=== PATIENT | female | born 1950 | race Caucasian/White ===

== ENCOUNTER → 2020-02-14 10:19 | Outpatient (CLI) | payer MEDICARE, SELFPAY ==
--- NOTE | ~2020-02-14 | MM_ITS ---
EXAMINATION: MM screening bay[facility] BI w cindy HISTORY: Screening TECHNIQUE: Craniocaudal and mediolateral oblique 3-D tomosynthesis images were obtained and synthetic 2-D images were generated. CAD analysis was submitted and interpreted. COMPARISON: Comparison to multiple prior studies sequentially, with oldest reviewed study dated 05/2013. BREAST PARENCHYMAL COMPOSITION: There are scattered areas of fibroglandular density. FINDINGS: There is no evidence of suspicious mass, calcification, or architectural distortion to sugg est malignancy in either breast. There has been no suspicious interval change. IMPRESSION: 1. No mammographic evidence of malignancy. 2. Recommend routine screening mammography in one year. BI-RADS Category 1: Negative Reviewed, dictated and finalized at location A. 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
== END ==
PROVIDERS: PCP Family Medicine Adolescent Medicine; Visit Provider Nurse Practitioner
DX: Z12.31 Encounter for screening mammogram for malignant neoplasm of breast (principal)
CPT/HCPCS: 77063; 77067

== ENCOUNTER → 2020-03-29 10:45 | Outpatient (CLI) | payer MEDICARE, SELFPAY ==
--- NOTE | ~2020-03-29 | DEXA_ITS ---
Bone Density Report Name: Sue Smallwood Age: 69 Sex: Female Ethnicity: White Date of : 1950 Indication: postmenopausal; screening for osteoporosis; height loss; Referring Provider: LIA, LAUREN Study: Bone densitometry was performed. Exam Date: March 29, 2020 Accession number: [id number] There is hypertrophic degenerative change of the lumbar spine, which results in higher than expected spine bone mineral density measurements. These spine BMD and T score and Z score measurements are not reflective of the patient's true general bone mineral density. Bone Density: Region BMD T-score Z-score Classification AP Spine (L3, L4) 1.124 0.2 2.4 Normal Femoral Neck (Left) 0.665 -1.7 0.1 Osteopenia Total Hip (Left) 0.900 -0.3 1.1 Normal Femoral Neck (Right) 0.656 -1.7 0.0 Osteopenia Total Hip (Right) 0.934 -0.1 1.4 Normal Total Hip Mean 0.917 -0.2 1.3 Normal World Health Organization criteria for BMD impression classify patients as: Normal (T-score at or above -1.0), Osteopenia (T-score between -1.0 and -2.5), or Osteoporosis (T-score at or below -2.5). 10-year Fracture Risk(1): Major Osteoporotic Fracture 9.1% Hip Fracture 1.3% Reported Risk Factors: [place] (), Neck BMD=0.656, BMI=41.6 (1) FRAX(R) Version 3.08. Fracture probability calculated for an untreated patient. Fracture probability may be lower if the patient has received treatment. Previous Exams: Region Exam Age BMD T-score BMD Change BMD Change Date g/cm2 vs Baseline vs Previous AP Spine(L3, L4) 03/29/2020 69 1.124 0.2 0.107 0.093* 01/12/2018 67 1.031 -0.6 0.015 -0.041* 12/19/2013 63 1.072 -0.3 0.056 -0.035* 01/12/2011 60 1.108 0.1 0.091 0.019 12/10/2008 58 1.088 -0.1 0.072 0.170 06/04/2006 55 0.918 -1.7 -0.099 -0.099 03/17/2002 51 1.017 -0.8 Total Hip(Left) 03/29/2020 69 0.900 -0.3 -0.133 0.067* 01/12/2018 67 0.833 -0.9 -0.200 -0.223* 12/19/2013 63 1.056 0.9 0.023 0.121* 01/12/2011 60 0.935 -0.1 -0.098 -0.115* 12/10/2008 58 1.050 0.9 0.017 0.104* 06/04/2006 55 0.946 0.0 -0.088 -0.088 03/17/2002 51 1.033 0.7 Total Hip(Right) 03/29/2020 69 0.934 -0.1 -0.086 0.095* 01/12/2018 67 0.839 -0.8 -0.180 -0.172* 12/19/2013 63 1.011 0.6 -0.008 -0.018 01/12/2011 60 1.029 0.7 0.009 -0.049* 12/10
== END ==
PROVIDERS: PCP Family Medicine Adolescent Medicine; Visit Provider Nurse Practitioner
DX: M85.88 Other specified disorders of bone density and structure, other site (principal); M85.852 Other specified disorders of bone density and structure, left thigh; M85.851 Other specified disorders of bone density and structure, right thigh
CPT/HCPCS: 77080

== ENCOUNTER 2020-07-17 02:28 | Inpatient (IN) | payer MEDICARE, SELFPAY ==
[2020-07-17] VITALS (13 sets, daily range): BP systolic 111–159; BP diastolic 59–95; PULSE 51–96; RESP 14–20; TEMP 35.8–36.6; O2SAT 97–100; BMI 43.0
--- NOTE | ~2020-07-17 | XR_ITS ---
EXAMINATION: XR chest 2V DATE: 07/17/2020 02:59 INDICATION: Midsternal chest pain TECHNIQUE: PA and lateral views of the chest were obtained. COMPARISON: Chest radiograph dated 05/08/2004 FINDINGS: The lungs remain clear with no focal airspace opacities, pulmonary edema, pleural effusion or pneumot horax. The cardiomediastinal silhouette is normal. Moderate thoracolumbar levoscoliosis with mild com pensatory thoracic dextroscoliosis. IMPRESSION: 1. No acute cardiopulmonary disease. 2. Scoliosis. Reviewed, dictated and finalized at location A.
--- NOTE | 2020-07-17 02:33 | ECG_ITS ---
Measurements Intervals [place] Rate: 96 P: 32 [place]: 160 QRS: -28 QRSD: 108 T: 74 QT: 348 QTc: 441 Interpretive Statements SINUS RHYTHM LEFT VENTRICULAR HYPERTROPHY WITH ST-T CHANGE BORDERLINE R WAVE PROGRESSION, ANTERIOR LEADS MINIMAL Q WAVES- HIGH LATERAL LEADS BORDERLINE ECG Electronically Signed On 07-17-2020 6:07:11 CDT by Richard Pond D.O.
[2020-07-17 02:55] LABS: Basophils Absolute Auto 0.1 K/mm3 (0.0-0.1); Basophils Percent Auto 0.5 % (0.2-1.2); Eosinophils Absolute Auto 0.2 K/mm3 (0-0.3); Eosinophils Percent Auto 1.6 % (0-4.4); Hematocrit 37.5 % (37.0-47.0); Hemoglobin 12.3 g/dL (12.0-15.0); Immature Granulocyte Absolute 0.04 K/mm3 (0.00-0.031); Immature Granulocyte Percent A 0.3 % (0-0.5); Lymphocytes Absolute Auto 5.15 K/mm3 (0.9-3.2); Lymphocytes Percent Auto 40.3 % (18.3-44.2); Mean Corpuscular HGB Conc 32.8 g/dl (32-36); Mean Corpuscular Hemoglobin 31.4 pg (26-34); Mean Corpuscular Volume 95.7 fl (80-100); Mean Platelet Volume 10.6 fl (7.4-10.4); Monocytes Absolute Auto 0.9 K/mm3 (0.1-0.6); Neutrophils Absolute Auto 6.4 K/mm3 (1.3-6.7); Neutrophils Percent Auto 50.3 % (45.5-73.1); Platelet Count Result 272 k/mm3 (150-375); Red Blood Count 3.92 M/mm3 (4.2-5.4); Red Cell Distribution Width 13.3 % (11.5-14.5); White Blood Count 12.8 K/mm3 (4.5-10.0)
[2020-07-17 03:05] LABS: Anion Gap 11 mmol/L (8-16); Blood Urea Nitrogen 35 mg/dL (7-17); Carbon Dioxide 23 mmol/L (22-30); Chloride 105 mmol/L (98-107); Estimated CRCL calculation 50 ml/min; Estimated Glomerular Filt Rate 55; Glucose 284 mg/dL (65-105); Potassium 4.8 mmol/L (3.4-5.0); Sodium 139 mmol/L (137-145)
[2020-07-17 03:17] LABS: Troponin I < 0.012 ng/mL (0.000-0.034)
--- NOTE | 2020-07-17 03:51 | ED.CHESTPAIN ---
HPI - Chest Pain General Chief Complaint: Chest Pain Stated Complaint: chest tight/painful Time Seen by Provider: 07/17/20 02:49 Source: patient, family and RN notes reviewed Mode of arrival: ambulatory Limitations: no limitations History of Present Illness HPI narrative: Patient is 69 years old white female presented to the ED with her complaining of intermittent chest pain for the last few days, worse on exertion, better at rest. Patient also complaining of fluttering feeling off and on for the last 2 weeks. History of diabetes, hypertension, hyperlipidemia, TIA, positive family history of coronary artery disease. Patient on Coumadin for abdominal blood clot. Patient does not smoke or drink or uses drugs. Currently patient still having heaviness at the left side of her chest. Related Data Allergies Allergy/AdvReac Type Severity Reaction Status Date / Time codeine AdvReac Unknown FEEL Verified 07/17/20 02:30 LOOPY THEN GET NAUSEATED Frdylbb-Zzv-Nxt Reductase AdvReac Unknown JOINT Verified 07/17/20 02:30 Inhibitor ACHES Review of Systems Review of Systems: Narrative: CONSTITUTIONAL: Denies fever, chills, or sweats. EYES: Denies visual changes, redness, or discharge. ENT: Denies rhinorrhea, congestion, sore throat, or otalgia. CARDIOVASCULAR: Denies chest pain, palpitations, or edema. RESPIRATORY: Denies cough or dyspnea. GASTROINTESTINAL: Denies abdominal pain, nausea, vomiting, or diarrhea. GENITOURINARY: Denies dysuria or hematuria. SKIN: Denies rash or itching. MUSCULOSKELETAL: Denies back pain, joint pain, or myalgia. NEUROLOGIC: Denies headache, numbness, or weakness. PSYCHIATRIC: Denies anxiety or depression. [facility] Family History Family History (Updated 04/29/15 @ 15:28 by DOCTOR UNKNOWN) Mother Hypertension Family history of lung cancer Father Cerebrovascular accident Family history of heart disease in male family member before age 55 Other Diabetes mellitus Family history of cardiovascular disease Malignant neoplasm of prostate Social History Social History Smoking status: Never smoker Alcohol intake: current Gender identity (if verbalized by the patient): Female Sexual Orientation (if Verbalized by the Patient): Straight or Heterosexual Course Vital Signs Vital signs: Vital Signs Temperature 35.8 C L 07/17/20 02:38 Pulse Rate 92 07/17/20 02:38 Respiratory Rate 16 07/17/20 02:38 Blood Pressure 159/74 H 07/17/20 02:38 Pulse Oximetry 97 07/17/20 02:38 Temperature 35.8 C L 07/17/20 02:38 Pulse Rate 92 07/17/20 02:38 Respiratory Rate 16 07/17/20 02:38 Blood Pressure 159/74 H 07/17/20 02:38 Pulse Oximetry 97 07/17/20 02:38 MDM - Chest Pain Lab Data Result diagrams: 07/17/20 02:49 07/17/20 02:49 Labs: Lab Results 07/17/20 07/17/20 Range/Units 02:49 02:49 WBC 12.8 H (4.5-10.0) K/mm3 RBC 3.92 L (4.2-5.4) M/mm3 Hgb 12.3 (12.0-15.0) g/dL Hct 37.5 (37.0-47.0) % MCV 95.7 (80-100) fl MCH 31.4 (26-34) pg MCHC 32.8 (32-36) g/dl RDW 13.3 (11.5-14.5) % Plt Count 272 (150-375) k/mm3 MPV 10.6 H (7.4-10.4) fl Immature Gran % (Auto) 0.3 (0-0.5) % Neut % (Auto) 50.3 (45.5-73.1) % Lymph % (Auto) 40.3 (18.3-44.2) % Garvin % (Auto) 7.0 (2.6-8.5) % Eos % (Auto) 1.6 (0-4.4) % Baso % (Auto) 0.5 (0.2-1.2) % Lymph # (Auto) 5.15 H (0.9-3.2) K/mm3 Garvin # (Auto) 0.9 H (0.1-0.6) K/mm3 Eos # (Auto) 0.2 (0-0.3) K/mm3 Baso # (Auto) 0.1 (0.0-0.1) K/mm3 Abs Immat Gran (auto) 0.04 H (0.00-0.031) K/mm3 Absolute Neuts (auto) 6.4 (1.3-6.7) K/mm3 Absolute Nucleated RBC 0.0 (0.0-0.012) K/mm3 Nucleated RBC % 0.0 (0.0-0.2) % Sodium 139 (137-145) mmol/L Potassium 4.8 (3.4-5.0) mmol/L Chloride 105 (98-107) mmol/L Carbon Dioxide 23 (22-30) mmol/L Anion Gap 11 (8-16) mmol/L BUN 35 H (7-17) mg/dL Crea
[2020-07-17 04:53] LABS: Partial Thromboplastin Time 31.6 SECONDS (22.3-36.8)
[2020-07-17 05:08] LABS: D Dimer < 0.22 ug/mL (<0.48)
[2020-07-17 05:28] LABS: INR 1.8; Prothrombin Time 21.8 Seconds (11.1-14.7)
[2020-07-17 06:55] LABS: Troponin I 0.045 ng/mL (0.000-0.034)
--- NOTE | 2020-07-17 06:59 | PC.NURSE ---
This patient, Sue Smallwood, was admitted to IMU Room 205-01. Patient/family oriented to hospital policies and general routines including ID bracelet, bed and alarms, visiting hours, pain management, procedures, bathroom and other care routines, personal items, smoking policy, room service/diet, and visiting hours. Information on how to activate the Rapid Response Team has been discussed. Patient/Family are encouraged to report perceived risks to care and to ask questions if they do not understand what they are told or what they should do.
[2020-07-17 09:32] LABS: Troponin I 0.073 ng/mL (0.000-0.034)
--- NOTE | 2020-07-17 09:37 | PM.CNCAR ---
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 Will plan that tomorrow as she is on Coumadin and her INR is 1.8. Will hold coumadin tonight and repeat INR in am. Also hold Metformin Continue ASA and Atorvastatin Check lipid profile and HgA1c (2) PVD (peripheral vascular disease): Code(s): I73.9 - Peripheral vascular disease, unspecified Status: Acute Assessment and Plan: With occlusion of celiac and mesenteric arteries noted on MRA in 2017 and unsuccessful attempt for revascularization at that time Okay to hold Coumadin with planned procedure/intervention tomorrow (3) Diabetes mellitus: Code(s): E11.9 - Type 2 diabetes mellitus without complications Status: Acute Assessment and Plan: Hold metformin (4) HTN (hypertension): Code(s): I10 - Essential (primary) hypertension Status: Acute Assessment and Plan: resume home meds History of Present Illness History of Present Illness Consult date/time: 07/17/20 09:37 69 y/o with h/o of DM (since her 40s), HTN, 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 last night around 12:15 she woke up with chest pain that felt like heaviness with radiation to the back. Pain resolved spontaneously by the time she got to the ER around 2:30 am. She has no nausea, diaphoresis, dizziness or syncope. She denies dyspnea. Her troponin noted to be slightly elevated at 0.04 and 0.07. Her INR is 1.8. She is pain free currently. EKG shows sinsu rhythm with LVH and repolarization changes in 2017 she had extensive GI work up for abdominal pain and eventually underwent MRA of abdomen that revealed occlusion of proximal celiac and mesenteric arteries. Attempt was made for catheter based intervention at [facility] was unsuccessful per patient with difficult access from left groin at that time per pt report Never smoker Father had PR in his early 60s Reason For Visit: chest pain Review of Systems Review of Systems: All systems reviewed & are unremarkable except as noted in HPI and below Constitutional: Constitutional: Denies fatigue and Denies headache(s) Eyes: Eyes: Denies blurry vision ENT: Reports Normal hearing present and Denies headache(s) Cardiovascular: Cardiovascular: Denies chest pain, Denies diaphoresis, Denies pedal edema, Denies leg edema, Denies lightheadedness, Denies palpitations and Denies dyspnea Respiratory: Respiratory: Denies cough and Denies dyspnea Gastrointestinal: Gastrointestinal: Denies abdominal pain Musculoskeletal: Musculoskeletal: Denies back pain Neurologic: Reports Normal hearing present and Denies headache(s) Psychiatric: Psychiatric: Denies anxiety Endocrine: Endocrine: Denies fatigue and Denies palpitations [facility] Family History Family History (Updated 04/29/15 @ 15:28 by DOCTOR UNKNOWN) Mother Hypertension Family history of lung cancer Father Cerebrovascular accident Family history of heart disease in male family member before age 55 Other Diabetes mellitus Family history of cardiovascular disease Malignant neoplasm of prostate Social History Social H
--- NOTE | 2020-07-17 09:56 | ECHO_ITS ---
Patient Info Name: Sue Smallwood Age: 69 years : 1950 Gender: Female Ht: 60 in Wt: 220 lbs BSA: 2.12 m2 HR: 97 bpm BP: 111 / 82 mmHg Technical Quality: Good Exam Date: 07/17/2020 10:32 AM Exam Location: [facility] Patient Status: Inpatient Admit Date: 07/17/2020 Staff Ordering Physician: Katherin Tierney MD (martita/hernán) [employer] Coordinator: Destiney Alexander RDCS Attending Provider: Aaron Craven MD Exam Type: CA echo doppler color flow Study Info Indications - chest pain Complete two-dimensional, color flow and Doppler transthoracic echocardiogram is performed. Summary 1. Complete two-dimensional, color flow and Doppler transthoracic echocardiogram is performed. 2. Left ventricular systolic function is normal, estimated at 60-65%. 3. Right ventricular chamber dimension is mildly enlarged. 4. Aortic valve is mildly calcified with no restricted motion. There is no aortic stenosis. 5. There is no mitral valve regurgitation. 6. There is trace tricuspid valve regurgitation. 7. Ascending aorta appears mildly calcified. 8. There is no pericardial effusion. Left Ventricle Left ventricular chamber dimension is normal. Left ventricular systolic function is normal, estimated at 60-65%. There is mildly increased left ventricular wall thickness. Left ventricular septal wall motion is normal. The left ventricular diastolic function is normal. Right Ventricle Right ventricular chamber dimension is mildly enlarged. Right ventricular systolic function is normal. Left Atria Left atrial chamber dimension is normal. Right Atria Right atrial chamber dimension is normal. Aortic Valve The aortic valve is trileaflet. There is no aortic valve sclerosis. There is no aortic valve stenosis. There is no aortic valve regurgitation. Aortic valve is mildly calcified with no restricted motion. There is no aortic stenosis. Pulmonic Valve The pulmonic valve is normal. There is no pulmonic valve stenosis. There is no pulmonic regurgitation. Mitral Valve The mitral valve has normal leaflets. There is no mitral valve regurgitation. Tricuspid Valve The tricuspid valve leaflets are normal. There is trace tricuspid valve regurgitation. No pulmonary hypertension, estimated pulmonary arterial systolic pressure is 29 mmHg. Pericardium/Pleural The pericardium appears normal. There is no pericardial effusion. Inferior Vena Cava Normal inferior vena cava with >50% collapse upon inspiration consistent with normal right atrial pressure. Aorta The aortic root size at the sinus of Valsalva is normal. The prox ascending aorta size is normal. Ascending aorta appears mildly calcified. Left Ventricular Outflow Tract Name Value Normal LVOT 2D LVOT Diameter 2.0 cm LVOT Doppler LVOT Peak Gradient 5 mmHg LVOT Mean Gradient 3 mmHg LVOT VTI 23 cm LVOT VTI/AV VTI Ratio 0.8 LVOT Stroke Volume 72 ml LVOT CO 15.6 l/
[2020-07-17 12:02] LABS: Cholesterol 172 mg/dL (0-200); HDL Direct 46 mg/dL; Triglycerides 240 mg/dL (<150)
[2020-07-17 12:06] LABS: Hemoglobin A1C 8.9 % (<5.7)
[2020-07-17 12:13] LABS: LDL Cholesterol Direct 69 mg/dL
[2020-07-17 12:21] LABS: Troponin I 0.077 ng/mL (0.000-0.034)
[2020-07-17 12:34] LABS: Glucose Point of Care 189 mg/dl (65-105)
--- NOTE | 2020-07-17 12:46 | PM.IMHP ---
H&P: HPI History of Present Illness Date/Time: 07/17/20 09:46 Chief Complaint: chest pain Narrative: 69-year-old female with diabetes hypertension hyperlipidemia obesity OA, glaucoma, GERD, atherosclerosis, presents to the emergency room with chief complaint of chest pain. Pain has been present intermittently for the last couple of weeks brought on by exertion; walking short distances, relieved by rest, initially duration was very brief less than 30 minutes. Patient states that she is minimally ambulatory due to advanced osteoarthritis of her knees and only walk short distances within her home. Last night she woke from sleep with chest pressure, 9/10, that lasted approximately 1/2 hour and radiated from the center of her chest to her back and resolved spontaneously. Nothing made it better, nothing made it worse. she does have a history of GERD and is taking omeprazole her father had an PR at age 60 as well as her uncle. She has no known history of coronary artery disease. Review of Systems Review of Systems: All systems reviewed & are unremarkable except as noted in HPI and below PMFSH Past Medical History Medical History (Updated 07/17/20 @ 13:01 by Luann Li MD) Diabetes mellitus GERD (gastroesophageal reflux disease) Glaucoma HTN (hypertension) Hyperlipidemia Obesity PVD (peripheral vascular disease) Surgical History Surgical History (Updated 07/17/20 @ 12:59 by Luann Li MD) History of cholecystectomy History of tubal ligation Family History Family History (Updated 04/29/15 @ 15:28 by DOCTOR UNKNOWN) Mother Hypertension Family history of lung cancer Father Cerebrovascular accident Family history of heart disease in male family member before age 55 Other Diabetes mellitus Family history of cardiovascular disease Malignant neoplasm of prostate Social History Social History (Updated 07/17/20 @ 13:00 by Luann Li MD) Smoking status: Never smoker Alcohol intake: current Alcohol use details: Social drinker Substance use: former Gender identity (if verbalized by the patient): Female Sexual Orientation (if Verbalized by the Patient): Straight or Heterosexual Spiritual care concerns: No Meds Home Medications and Allergies Home Medications Medication Instructions Recorded Confirmed Type aspirin 81 mg PO DAILY 07/17/20 07/17/20 History atorvastatin 10 mg PO HS 07/17/20 07/17/20 History calcium carbonate 600 mg PO Q12H 07/17/20 07/17/20 History cholecalciferol (vitamin D3) 20 mcg PO Q12H 07/17/20 07/17/20 History [Vitamin D3] cyanocobalamin (vitamin B-12) 1,000 mcg PO DAILY 07/17/20 07/17/20 History [Vitamin B-12] folic acid 0.8 mg PO DAILY 07/17/20 07/17/20 History glimepiride 2 mg PO DAILY 07/17/20 07/17/20 History latanoprost 1 drp EACH EYE HS 07/17/20 07/17/20 History lisinopril 20 mg PO DAILY 07/17/20 07/17/20 History metformin 1,000 mg PO Q12H 07/17/20 07/17/20 History nifedipine 30 mg PO HS 07/17/20 07/17/20 History omeprazole 20 mg PO Q12H 07/17/20 07/17/20 History warfarin 5 mg PO HS 07/17/20 07/17/20 History Allergies Allergy/AdvReac Type Severity Reaction Status Date / Time codeine AdvReac Unknown FEEL Verified 07/17/20 02:30 LOOPY THEN GET NAUSEATED Vepvpse-Kfd-Guc Reductase AdvReac Unknown JOINT Verified 07/17/20 02:30 Inhibitor ACHES Vital Signs Vital Signs - 24 hr 07/17/20 02:38 07/17/20 06:59 07/17/20 07:05 Temperature 96.5 F L 97.3 F L 97.8 F Pulse Rate 92 91 51 L Respiratory Rate 16 18 20 Blood Pressure 159/74 H 148/95 H 111/82 Pulse Oximetry 97 100 97 07/17/20 08:23 07/17/20 10:00 07/17/20 12:00 Temperature 96.8 F L Pulse Rate 85 85 88 Respiratory Rate 14 Blood Pressure 147/61 H Pulse Oximetry 98 Exam Const: General: comfortable and no acute distress HENMT: General nose exam: Normal nares present Mouth: Yes moist mucous membranes Eyes: General: appearance
[2020-07-17] MEDS: lisinopriL 20 MG TABLET PO (15:58)
[2020-07-17] MEDS: ASPIRIN 81 MG CHEWABLE TABLET PO (16:53)
[2020-07-17] MEDS: INSULIN ASPART (*BKC) 100 UNITS/ML SUB-Q (16:54)
[2020-07-17 17:34] LABS: Glucose Point of Care 246 mg/dl (65-105)
[2020-07-17 20:10] LABS: Glucose Point of Care 286 mg/dl (65-105)
[2020-07-17] MEDS: NIFEdipine 30 MG TAB.ER.24 PO (20:25)
[2020-07-17] MEDS: PANTOPRAZOLE 40 MG TABLET PO (20:25)
[2020-07-17] MEDS: ATORVASTATIN 10 MG TABLET PO (20:25)
[2020-07-17] MEDS: LATANOPROST 0.005% OP SOLN 2.5 ML BTL 1 DROP EACH EYE (20:25)
[2020-07-18] VITALS (23 sets, daily range): BP systolic 132–176; BP diastolic 62–92; PULSE 68–101; RESP 12–20; TEMP 36.1–36.9; O2SAT 94–100
[2020-07-18 04:52] LABS: Anion Gap 6 mmol/L (8-16); Basophils Absolute Auto 0.1 K/mm3 (0.0-0.1); Basophils Percent Auto 0.6 % (0.2-1.2); Blood Urea Nitrogen 30 mg/dL (7-17); Calcium 9.2 mg/dL (8.4-10.2); Carbon Dioxide 27 mmol/L (22-30); Chloride 104 mmol/L (98-107); Eosinophils Absolute Auto 0.3 K/mm3 (0-0.3); Eosinophils Percent Auto 2.5 % (0-4.4); Estimated CRCL calculation 45 ml/min; Estimated Glomerular Filt Rate 49; Glucose 351 mg/dL (65-105); Hematocrit 34.1 % (37.0-47.0); Hemoglobin 11.5 g/dL (12.0-15.0); Immature Granulocyte Absolute 0.03 K/mm3 (0.00-0.031); Immature Granulocyte Percent A 0.3 % (0-0.5); Lymphocytes Absolute Auto 5.47 K/mm3 (0.9-3.2); Lymphocytes Percent Auto 50.7 % (18.3-44.2); Magnesium 1.1 mg/dL (1.6-2.3); Mean Corpuscular HGB Conc 33.7 g/dl (32-36); Mean Corpuscular Hemoglobin 31.8 pg (26-34); Mean Corpuscular Volume 94.2 fl (80-100); Mean Platelet Volume 10.9 fl (7.4-10.4); Monocytes Absolute Auto 0.8 K/mm3 (0.1-0.6); Monocytes Percent Auto 7.5 % (2.6-8.5); Neutrophils Absolute Auto 4.1 K/mm3 (1.3-6.7); Neutrophils Percent Auto 38.4 % (45.5-73.1); Platelet Count Result 266 k/mm3 (150-375); Red Blood Count 3.62 M/mm3 (4.2-5.4); Red Cell Distribution Width 13.2 % (11.5-14.5); Sodium 137 mmol/L (137-145); White Blood Count 10.8 K/mm3 (4.5-10.0)
[2020-07-18 05:42] LABS: Atypical Lymphocytes Present; Platelet Estimate Adequate (Adequate)
[2020-07-18 07:51] LABS: Glucose Point of Care 254 mg/dl (65-105)
[2020-07-18] MEDS: PANTOPRAZOLE 40 MG TABLET PO ×2 (08:11→20:28)
[2020-07-18] MEDS: ASPIRIN 81 MG CHEWABLE TABLET PO (08:17)
--- NOTE | 2020-07-18 08:42 | PM.PNCARD ---
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 INR pending this am. Continue ASA and Atorvastatin LDL 61 (2) PVD (peripheral vascular disease): Code(s): I73.9 - Peripheral vascular disease, unspecified Status: Acute Assessment and Plan: With occlusion of celiac and mesenteric arteries noted on MRA in 2017 and unsuccessful attempt for revascularization at that time Okay to hold Coumadin with planned procedure/intervention tomorrow (3) Diabetes mellitus: Code(s): E11.9 - Type 2 diabetes mellitus without complications Status: Acute Assessment and Plan: Hold metformin (4) HTN (hypertension): Code(s): I10 - Essential (primary) hypertension Status: Acute Assessment and Plan: resume home meds Subjective Date/time seen: 07/18/20 08:42 She feels better. No recurrence of chest pain. Denies dyspnea Review of Systems Review of Systems: All systems reviewed & are unremarkable except as noted in HPI and below Constitutional: Constitutional: Denies fatigue and Denies headache(s) Eyes: Eyes: Denies blurry vision ENT: Reports Normal hearing present and Denies headache(s) Cardiovascular: Cardiovascular: Denies chest pain, Denies diaphoresis, Denies pedal edema, Denies leg edema, Denies lightheadedness, Denies palpitations and Denies dyspnea Respiratory: Respiratory: Denies cough and Denies dyspnea Gastrointestinal: Gastrointestinal: Denies abdominal pain Musculoskeletal: Musculoskeletal: Denies back pain Neurologic: Reports Normal hearing present and Denies headache(s) Psychiatric: Psychiatric: Denies anxiety Endocrine: Endocrine: Denies fatigue and Denies palpitations Exam Const: General: no acute distress Eyes: Sclera: sclerae normal Neck: Neck: no JVD Carotids: no bruits Resp: Effort & Inspection: normal respiratory effort Auscultation: clear to auscultation bilaterally Cardio: Rate: regular rate and not tachycardic Rhythm: regular rhythm Heart sounds: no gallops, no murmurs and no rubs Skin: General skin exam: normal color Neuro: Cranial nerves: Yes Normal hearing present Speech: normal speech Extrem: General: normal to inspection and no edema Psych: Affect: normal affect Objective Data Vital Signs Vital Signs: Vital Signs - 24 hr 07/17/20 10:00 07/17/20 12:00 07/17/20 12:35 Temperature 36.0 C L Pulse Rate 85 88 88 Respiratory Rate 14 Blood Pressure 147/61 H Pulse Oximetry 98 07/17/20 14:00 07/17/20 16:00 07/17/20 18:00 Temperature 36.2 C L Pulse Rate 96 87 85 Respiratory Rate 16 Blood Pressure 129/61 Pulse Oximetry 97 07/17/20 20:00 07/17/20 22:00 07/17/20 23:34 Temperature 36.4 C 36.4 C Pulse Rate 88 83 87 Respiratory Rate 18 20 Blood Pressure 147/59 H 149/72 H Pulse Oximetry 97 99 07/18/20 00:00 07/18/20 02:00 07/18/20 04:00 Temperature 36.5 C Pulse Rate 90 72 71 Respiratory Rate 20 18 Blood Pressure 139/65 Pulse Oximetry 99 94 07/18/20 06:00 07/18/20 07:53 Temperature 36.8 C Pulse Rate 74 101 H Respiratory Rate 17 Blood Pressure 142/70 H Pulse Oximetry 95 Intake/Output Intake/Output: Intake & Output 07/15/20 07/16/20 07/17/20 07/18/20 23:59 23:59 23:59 23:59 Intake Total 1030 300 Output Tota
[2020-07-18] MEDS: lisinopriL 20 MG TABLET PO (09:08)
[2020-07-18] MEDS: INSULIN ASPART (*BKC) 100 UNITS/ML SUB-Q ×2 (09:08→17:51)
[2020-07-18 09:31] LABS: INR 1.7; Prothrombin Time 20.1 Seconds (11.1-14.7)
[2020-07-18 11:43] LABS: Glucose Point of Care 303 mg/dl (65-105)
--- NOTE | 2020-07-18 13:43 | WPDMODSED ---
Moderate Sedation Note-Pt Data Patient Data Allergies Allergy/AdvReac Type Severity Reaction Status Date / Time codeine AdvReac Unknown FEEL Verified 07/17/20 02:30 LOOPY THEN GET NAUSEATED Phwwywr-Rys-Afk Reductase AdvReac Unknown JOINT Verified 07/17/20 02:30 Inhibitor ACHES Home Medications Medication Instructions Recorded Confirmed Type aspirin 81 mg PO DAILY 07/17/20 07/17/20 History atorvastatin 10 mg PO HS 07/17/20 07/17/20 History calcium carbonate 600 mg PO Q12H 07/17/20 07/17/20 History cholecalciferol (vitamin D3) 20 mcg PO Q12H 07/17/20 07/17/20 History [Vitamin D3] cyanocobalamin (vitamin B-12) 1,000 mcg PO DAILY 07/17/20 07/17/20 History [Vitamin B-12] folic acid 0.8 mg PO DAILY 07/17/20 07/17/20 History glimepiride 2 mg PO DAILY 07/17/20 07/17/20 History latanoprost 1 drp EACH EYE 07/17/20 07/17/20 History lisinopril 20 mg PO DAILY 07/17/20 07/17/20 History metformin 1,000 mg PO Q12H 07/17/20 07/17/20 History nifedipine 30 mg PO HS 07/17/20 07/17/20 History omeprazole 20 mg PO Q12H 07/17/20 07/17/20 History warfarin 5 mg PO HS 07/17/20 07/17/20 History Current Medications: Active Medications Aspirin (Aspirin 81 Mg Chewable Tablet) 81 mg PO DAILY@0800 [facility] Last Admin: 07/18/20 08:17 Dose: 81 mg Documented by: Atorvastatin Calcium (Atorvastatin 10 Mg Tablet) 10 mg PO [facility] Last Admin: 07/17/20 20:25 Dose: 10 mg Documented by: Dextrose (Dextrose 50% 25 Gm/50 Ml Syringe) 12.5 gm IV PUSH PRN PRN; Protocol PRN Reason: Hypoglycemia Glucagon (Glucagon For Inj 1 Mg Vial) 1 mg IM PRN PRN; Protocol PRN Reason: Hypoglycemia Glucose (Glucose Oral Gel 15 Gm Of Glucse In 37.5 Gm Tube) 15 gm PO PRN PRN; Protocol PRN Reason: Hypoglycemia Dextrose (Dextrose 5% 1,000 Ml) 1,000 mls @ 100 mls/hr IVPB PRN PRN; Protocol PRN Reason: Hypoglycemia Insulin Aspart (Insulin Aspart (*Bkc) 100 Units/Ml) 3 - 6 units SUB-Q TIDWM [facility]; Protocol Last Admin: 07/18/20 09:08 Dose: 4 units Documented by: Latanoprost (Latanoprost 0.005% Op Soln 2.5 Ml Btl) 1 drop EACH EYE [facility] Last Admin: 07/17/20 20:25 Dose: 1 drop Documented by: Lisinopril (Lisinopril 20 Mg Tablet) 20 mg PO DAILY [facility] Last Admin: 07/18/20 09:08 Dose: 20 mg Documented by: Nifedipine (Nifedipine 30 Mg Tab.Er.24) 30 mg PO [facility] Last Admin: 07/17/20 20:25 Dose: 30 mg Documented by: Nitroglycerin (Nitroglycerin Sl 0.4 Mg Tablet) 0.4 mg SUBLINGUAL Q5MIN PRN PRN Reason: Chest Pain Nitroglycerin (Nitroglycerin Sl 0.4 Mg Tablet) 0.4 mg SUBLINGUAL Q5MIN PRN PRN Reason: Chest Pain Pantoprazole Sodium (Pantoprazole 40 Mg Tablet) 40 mg PO Q12HR [facility] Last Admin: 07/18/20 08:11 Dose: 40 mg Documented by: Sedation/Anesthesia: No previous sedation/anesthesia problems (including family history). [facility] Past Medical History Medical History (Updated 07/17/20 @ 13:01 by Luann Li MD) Diabetes mellitus GERD (gastroesophageal reflux disease) Glaucoma HTN (hypertension) Hyperlipidemia Obesity PVD (peripheral vascular disease) Surgical History Surgical History (Updated 07/17/20 @ 12:59 by Luann Li MD) History of cholecystectomy History of tubal ligation Family History Family History (Updated 04/29/15 @ 15:28 by DOCTOR UNKNOWN) Mother Hypertension Family history of lung cancer Father Cerebrovascular accident Family history of heart disease in male family member before age 55 Other Diabetes mellitus Family history of cardiovascular disease Malignant neoplasm of prostate Social History Social History (Updated 07/17/20 @ 13:00 by Luann Li MD) Smoking status: Never smoker Alcohol intake: current Alcohol use details: Social drinker Substance use: former Gender identity (if verbalized by the patient): Female Sexual Orientation (if Verbalized by the Patient): Straight or Heterosexual Spiritual care concerns: No Mod Sed Physical Exam P
--- NOTE | 2020-07-18 14:22 | WPDCARDPROC ---
Cardiac Cath Procedure Note Date of procedure:: 07/18/20 Performing physician:: Aleksandr John MD PROCEDURE: 1. LEFT HEART CATHETERIZATION, SELECTIVE CORONARY ANGIOGRAM. 2. LEFT VENTRICULAR ANGIOGRAM. 3. ANGIO-SEAL DEVICE FOR ARTERIAL HEMOSTASIS 3. CONSCIOUS SEDATION. CUSHION ASSEMBLER: DR. ALEKSANDR JOHN COMPLICATIONS: NONE. SEDATION: CONSCIOUS SEDATION, LOCAL ANESTHESIA, USING 1 MG OF VERSED SAID, 25 MCG OF FENTANYL, AND USING 1% LIDOCAINE FOR LOCAL ANESTHESIA. starting time is 1:45 p.m. ending time is 2:10 p.m. HISTORY: 69 years old lady with history of hypertension, history of dyslipidemia and history of diabetes mellitus came the hospital because of chest pain noted to have slight elevation of troponin indicative non ST-elevation myocardial infarction. After further stabilization which was brought to the laboratory technical specialist for elective cardiac catheterization for definitive diagnosis of coronary disease TECHNIQUE: AFTER INFORMED CONSENT WAS OBTAINED FROM PATIENT, WAS BROUGHT TO THE INFECTION CONTROL PRACTITIONER, PUT IN THE INFECTION CONTROL PRACTITIONER TABLE, PREPPED AND DRAPED IN USUAL STERILE FASHION. FIVE TANZANIAN SHEATH WAS INSERTED INTO THE RIGHT COMMON FEMORAL ARTERY, THROUGH THE SHEATH 5 TANZANIAN JL4 CATHETER INSERTED, ADVANCED TO THE LEFT CORONARY ARTERY, LEFT CORONARY ARTERY ANGIOGRAM WAS OBTAINED. THE CATHETER WAS EXCHANGED OVER GUIDEWIRE INTO A 5 TANZANIAN JR4 CATHETER, ADVANCED TO THE RIGHT CORONARY ARTERY, RIGHT CORONARY ARTERY ANGIOGRAM WAS OBTAINED. THE CATHETER THEN WAS EXCHANGED OVER GUIDEWIRE INTO THIS 5 TANZANIAN PIGTAIL CATHETER, ADVANCED TO LEFT VENTRICLE, LEFT VENTRICULAR ANGIOGRAM WAS OBTAINED. THE CATHETER THEN WAS PULLED, THE SHEATH WAS PULLED APPLYING Angio-Seal device FOR ARTERIAL HEMOSTASIS. PATIENT TOLERATED THE PROCEDURE NO COMPLICATION, TAKEN FROM THE INFECTION CONTROL PRACTITIONER TO HIS ROOM IN STABLE CONDITION STABLE VITAL SIGNS. HEMODYNAMICS: AORTIC PRESSURE 124/60 . LV PRESSURE 124/04 WITH LVEDP OF 24 MM[facility] ANGIOGRAPHIC FINDINGS: LEFT MAIN: MEDIUM SIZE ARTERY showed distal left main 50-60% calcified stenosis LAD MEDIUM SIZE ARTERY SHOWED diffuse calcification with ostial 90% mid and distal multiple lesions 90% disease LEFT CIRCUMFLEX ARTERY, MEDIUM SIZE ARTERY, with mid left circumflex 75% stenosis 1st obtuse marginal with 75% proximal stenosis RCA: DOMINANT VESSEL, SHOWED MID RCA 75% eccentric lesion, and PLV with 90% proximal lesion LV: NORMAL SIZE LEFT VENTRICLE WITH NORMAL LEFT VENTRICULAR SYSTOLIC FUNCTION. SUMMARY: severe three-vessel coronary disease with left main disease and normal left ventricular systolic function RECOMMENDATION: will benefit from coronary bypass surgery CARDENAS to LAD saphenous venous graft to diagonal branch obtuse marginal and distal RCA. Will arrange for transfer to [facility] for bypass surgery
--- NOTE | 2020-07-18 16:17 | PM.IMPN ---
Progress Note: A&P Assessment and Plan (1) CAD (coronary artery disease), [place] coronary artery: Code(s): I25.10 - Atherosclerotic heart disease of [place] coronary artery without angina pectoris Status: Acute Assessment and Plan: pt w significant multivessel disease will be transferred to [facility] for CABG cont current care (2) Electrolyte imbalance: Code(s): E87.8 - Other disorders of electrolyte and fluid balance, not elsewhere classified Status: Acute (3) HTN (hypertension): Code(s): I10 - Essential (primary) hypertension Status: Acute Assessment and Plan: Continue home med (4) PVD (peripheral vascular disease): Code(s): I73.9 - Peripheral vascular disease, unspecified Status: Acute Assessment and Plan: restart warfarin after CABG; timing per recs of CTS (5) Diabetes mellitus: Code(s): E11.9 - Type 2 diabetes mellitus without complications Status: Acute Assessment and Plan: Insulin sliding scale Lantus 5U added as pt has remained in 300s and has had missed doses of insulin Accu-Cheks (6) Hyperlipidemia: Code(s): E78.5 - Hyperlipidemia, unspecified Status: Acute Assessment and Plan: Continue statin therapy (7) Obesity: Code(s): E66.9 - Obesity, unspecified Status: Acute Assessment and Plan: Dietary modification recommendations (8) GERD (gastroesophageal reflux disease): Code(s): K21.9 - Gastro-esophageal reflux disease without esophagitis Status: Acute Assessment and Plan: Continue home med (9) Glaucoma: Code(s): H40.9 - Unspecified glaucoma Status: Acute Assessment and Plan: Continue home medication Additional Plan s/p cardiac cath today : ANGIOGRAPHIC FINDINGS: LEFT MAIN: MEDIUM SIZE ARTERY showed distal left main 50-60% calcified stenosis LAD MEDIUM SIZE ARTERY SHOWED diffuse calcification with ostial 90% mid and distal multiple lesions 90% disease LEFT CIRCUMFLEX ARTERY, MEDIUM SIZE ARTERY, with mid left circumflex 75% stenosis 1st obtuse marginal with 75% proximal stenosis RCA: DOMINANT VESSEL, SHOWED MID RCA 75% eccentric lesion, and PLV with 90% proximal lesion LV: NORMAL SIZE LEFT VENTRICLE WITH NORMAL LEFT VENTRICULAR SYSTOLIC FUNCTION. SUMMARY: severe three-vessel coronary disease with left main disease and normal left ventricular systolic function pt to be transferred to [facility] for CABG heparin gtt c/s academic support coordinator insulin adjusted magnesium repleted cont current care ` Time Spent With Patient Time with patient: 25 - 35 minutes Subjective Date/time seen: 07/18/20 16:17 pt has no complaints waiting for cardiac catheterization at time of my visit Exam Const: General: comfortable and no acute distress Orientation/consciousness: oriented to person, oriented to place and oriented to time HENMT: General nose exam: Normal external nose present Mouth: Yes moist mucous membranes Eyes: General: appearance normal, both eyes and all related structures EOM: EOMs intact bilaterally Neck: Neck: no JVD Resp: Effort & Inspection: normal respiratory effort Auscultation: clear to auscultation bilaterally Cardio: Rate: regular rate Rhythm: regular rhythm GI: Inspection: non-distended Auscultation: normal bowel sounds Skin: General skin exam: normal color, no rashes or lesions noted and no erythema Wounds: no wounds Neuro: General: oriented to person, oriented to place, oriented to time, no focal motor deficits and CN's II-XI intact bilaterally Cognition (Neuro): normal cognition Speech: normal speech Extrem: General: normal to inspection and no edema Psych: Mental Status: mental status grossly normal Objective Data Vital Signs Vital Signs: Vital Signs - 24 hr 07/17/20 18:00 07/17/20 20:00 07/17/20 22:00 Temperature 97.6 F Pulse Rate 85 88 83 Pulse Rate [Right Pedal (Dorsalis Pedis) P
[2020-07-18 16:20] LABS: Glucose Point of Care 218 mg/dl (65-105)
[2020-07-18] MEDS: HEPARIN SOD/D5W 100 UNITS/ML 25,000 UNITS/250 ML BAG 8 UNITS IV CONT (17:30)
[2020-07-18 17:36] LABS: Basophils Absolute Auto 0.1 K/mm3 (0.0-0.1); Basophils Percent Auto 0.4 % (0.2-1.2); Eosinophils Absolute Auto 0.1 K/mm3 (0-0.3); Eosinophils Percent Auto 0.6 % (0-4.4); Hematocrit 38.2 % (37.0-47.0); Hemoglobin 12.8 g/dL (12.0-15.0); Immature Granulocyte Absolute 0.03 K/mm3 (0.00-0.031); Immature Granulocyte Percent A 0.2 % (0-0.5); Lymphocytes Absolute Auto 3.89 K/mm3 (0.9-3.2); Mean Corpuscular HGB Conc 33.5 g/dl (32-36); Mean Corpuscular Hemoglobin 31.2 pg (26-34); Mean Corpuscular Volume 93.2 fl (80-100); Mean Platelet Volume 10.4 fl (7.4-10.4); Monocytes Absolute Auto 0.7 K/mm3 (0.1-0.6); Monocytes Percent Auto 5.6 % (2.6-8.5); Neutrophils Absolute Auto 8.2 K/mm3 (1.3-6.7); Neutrophils Percent Auto 63.2 % (45.5-73.1); Platelet Count Result 264 k/mm3 (150-375); Red Cell Distribution Width 13.2 % (11.5-14.5)
[2020-07-18 17:50] LABS: INR 1.4; Partial Thromboplastin Time 27.2 SECONDS (22.3-36.8); Prothrombin Time 17.8 Seconds (11.1-14.7)
[2020-07-18] MEDS: INSULIN GLARGINE (*BKC) 100 UNITS/ML SUB-Q (17:51)
[2020-07-18] MEDS: MAGNESIUM SULF 2 GM/WATER 50ML 2 GM/50 ML BAG IVPB (18:05)
[2020-07-18] MEDS: LATANOPROST 0.005% OP SOLN 2.5 ML BTL 1 DROP EACH EYE (20:27)
[2020-07-18] MEDS: ATORVASTATIN 10 MG TABLET PO (20:28)
[2020-07-18] MEDS: NIFEdipine 30 MG TAB.ER.24 PO (20:28)
[2020-07-18] MEDS: SODIUM CHLORIDE 0.9% IV 1,000 ML 125 ML IV CONT (20:47)
[2020-07-18 21:08] LABS: Glucose Point of Care 365 mg/dl (65-105)
--- NOTE | 2020-07-18 22:06 | PC.NURSE ---
haim picked patient up for transfer to [facility]. report called to jason.
--- NOTE | 2020-07-18 23:44 | PM.TDS ---
Transfer Discharge Sum: Prov Provider Date of admission: 07/17/20 10:35 Primary care physician: Teddy Walker MD Admitting clinician: Aaron Craven MD Consults: 07/17/20 05:57 Consult to Physician Routine Comment: md is notified of the consult Consulting Provider: Aleksandr John call center support consultant/MD group to consult: [facility] Reason for consultation: Chest pain Has provider been notified: Yes 07/18/20 Care Coordination Consult Routine Comment: pending transfer to [facility] Reason for Consult:: Other DS: Admitting Diagnosis Admitting Diagnosis Admitting Diagnosis: (1) Chest pain: rule out ACS Qualifiers: Chest pain type: unspecified Qualified Code(s): R07.9 - Chest pain, unspecified Code(s): R07.9 - Chest pain, unspecified Status: Acute Assessment and Plan: Serial troponin Serial EKG Consult cardiology Patient has significant comorbidities highly probable as she has significant CAD will go for cardiac catheterization (2) HTN (hypertension): Code(s): I10 - Essential (primary) hypertension Status: Acute Assessment and Plan: Continue home med (3) PVD (peripheral vascular disease): Code(s): I73.9 - Peripheral vascular disease, unspecified Status: Acute Assessment and Plan: Patient on warfarin with subtherapeutic INR 1.8 All INR for cardiac catheterization (4) Diabetes mellitus: Code(s): E11.9 - Type 2 diabetes mellitus without complications Status: Acute Assessment and Plan: Insulin sliding scale Accu-Cheks (5) Hyperlipidemia: Code(s): E78.5 - Hyperlipidemia, unspecified Status: Acute Assessment and Plan: Continue statin therapy (6) Obesity: Code(s): E66.9 - Obesity, unspecified Status: Acute Assessment and Plan: Dietary modification recommendations (7) GERD (gastroesophageal reflux disease): Code(s): K21.9 - Gastro-esophageal reflux disease without esophagitis Status: Acute Assessment and Plan: Continue home med (8) Glaucoma: Code(s): H40.9 - Unspecified glaucoma Status: Acute Assessment and Plan: Continue home medication DS: Discharge Diagnosis Discharge Diagnosis (1) Electrolyte imbalance: Code(s): E87.8 - Other disorders of electrolyte and fluid balance, not elsewhere classified Status: Acute (2) CAD (coronary artery disease), [place] coronary artery: Code(s): I25.10 - Atherosclerotic heart disease of [place] coronary artery without angina pectoris Status: Acute (3) PVD (peripheral vascular disease): Code(s): I73.9 - Peripheral vascular disease, unspecified Status: Acute (4) HTN (hypertension): Code(s): I10 - Essential (primary) hypertension Status: Acute (5) Hyperlipidemia: Code(s): E78.5 - Hyperlipidemia, unspecified Status: Acute (6) Diabetes mellitus: Code(s): E11.9 - Type 2 diabetes mellitus without complications Status: Acute (7) Obesity: Code(s): E66.9 - Obesity, unspecified Status: Acute (8) GERD (gastroesophageal reflux disease): Code(s): K21.9 - Gastro-esophageal reflux disease without esophagitis Status: Acute (9) Glaucoma: Code(s): H40.9 - Unspecified glaucoma Status: Acute Transfer Discharge Sum: Med Medications Active and Home Medications: Home Medications aspirin 81 mg PO DAILY 07/17/20 [History Confirmed 07/17/20] atorvastatin 10 mg PO HS 07/17/20 [History Confirmed 07/17/20] calcium carbonate 600 mg PO Q12H 07/17/20 [History Confirmed 07/17/20] cholecalciferol (vitamin D3) [Vitamin D3] 20 mcg PO Q12H 07/17/20 [History Confirmed 07/17/20] cyanocobalamin (vitamin B-12) [Vitamin B-12] 1,000 mcg PO DAILY 07/17/20 [History Confirmed 07/17/20] folic acid 0.8 mg PO DAILY 07/17/20 [History Confirmed 07/17/20] glimepiride 2 mg PO DAILY 07/17/20 [History Confirmed 07/17/20] latanop
== END 2020-07-18 22:00 | disposition short-term general hospital (02) | DRG 287 ==
LOC: ANHED 06:00 → ANHIMU 06:15
PROVIDERS: Internal Medicine; Specialist; Admitting Provider Internal Medicine; Emergency Provider Emergency Medicine; PCP Family Medicine Adolescent Medicine; Visit Provider Hospitalist
PROC: 4A023N7 Measurement of Cardiac Sampling and Pressure, Left Heart, Percutaneous Approach (ICD-10-PCS; CPT 93452; principal; 2020-07-18 13:15)
PROC: 4A023N7 Measurement of Cardiac Sampling and Pressure, Left Heart, Percutaneous Approach (ICD-10-PCS; 2020-07-18 13:15)
DX: I25.10 Atherosclerotic heart disease of native coronary artery without angina pectoris; Z68.41 Body mass index [BMI] 40.0-44.9, adult; E66.9 Obesity, unspecified; I10 Essential (primary) hypertension; E11.51 Type 2 diabetes mellitus with diabetic peripheral angiopathy without gangrene; E78.5 Hyperlipidemia, unspecified; R77.8 Other specified abnormalities of plasma proteins; K21.9 Gastro-esophageal reflux disease without esophagitis; H40.9 Unspecified glaucoma; E87.8 Other disorders of electrolyte and fluid balance, not elsewhere classified; Z82.49 Family history of ischemic heart disease and other diseases of the circulatory system; Z86.73 Personal history of transient ischemic attack (TIA), and cerebral infarction without residual deficits; Z79.01 Long term (current) use of anticoagulants; Z79.82 Long term (current) use of aspirin; Z79.84 Long term (current) use of oral hypoglycemic drugs
CPT/HCPCS: 36415; 71046; 80048; 80061; 82948; 83036; 83735; 84484; 85025; 85380; 85610; 85730; 93005; 93306; 93458; 99285; A9270; C1760; C1887; C1894; G0269; G0378; J1644; J1815; J2250; J3010; J3475; J7030; J7040

== ENCOUNTER → 2020-11-30 01:12 | Outpatient (CLI) | payer MEDICARE, SELFPAY ==
[2020-11-30 17:04] LABS: SARS-CoV-2 RNA PCR Negative
== END ==
PROVIDERS: PCP Family Medicine Adolescent Medicine; Visit Provider Physician Assistant
DX: R68.89 Other general symptoms and signs (principal); Z20.822 Contact with and (suspected) exposure to COVID-19
CPT/HCPCS: C9803; U0003; U0005

== ENCOUNTER 2021-01-13 09:45 | Outpatient (RCR) | payer MEDICARE, SELFPAY ==
[2020-10-18 11:57] VITALS: BP 130/60; PULSE 65; RESP 20; O2SAT 97
--- NOTE | 2020-11-29 12:11 | PCCPR ---
pt has granddaughter with positive test; she gets tested Saturday 12/02 and therefore will be absent until results are in 12/03
--- NOTE | 2020-12-03 09:12 | PCCPR ---
Absent this past Wednesday due to COVID exposure and testing. Sue tested negative but will be absent tomorrow for . Plans to return .
[2020-12-19 10:51] LABS: Glucose Point of Care 183 mg/dl (65-105)
[2020-12-19 10:51] LABS: Glucose Point of Care 140 mg/dl (65-105)
== END 2021-01-13 13:44 | disposition home or self-care (01) ==
LOC: ANHCPREHAB 09:45
PROVIDERS: PCP Family Medicine Adolescent Medicine; Visit Provider Specialist
DX: Z95.1 Presence of aortocoronary bypass graft (principal)
CPT/HCPCS: 93798

== ENCOUNTER → 2021-03-24 12:14 | Outpatient (CLI) | payer MEDICARE, SELFPAY ==
--- NOTE | ~2021-03-24 | MM_ITS ---
EXAMINATION: MM screening [facility] BI w cindy HISTORY: Screening TECHNIQUE: Craniocaudal and mediolateral oblique 3-D tomosynthesis images were obtained and synthetic 2-D images were generated. CAD analysis was submitted and interpreted. COMPARISON: Comparison to multiple prior studies sequentially, with oldest reviewed study dated 12/16. BREAST PARENCHYMAL COMPOSITION: There are scattered areas of fibroglandular density.. FINDINGS: There is no evidence of suspicious mass, calcification, or architectural distortion to sugg est malignancy in either breast. There has been no suspicious interval change. IMPRESSION: 1. No mammographic evidence of malignancy. 2. Recommend routine screening mammography in one year. BI-RADS Category 1: Negative Reviewed, dictated and finalized at location A. ER SHOP SUPERVISOR
== END ==
PROVIDERS: PCP Family Medicine Adolescent Medicine; Visit Provider Nurse Practitioner
DX: Z12.31 Encounter for screening mammogram for malignant neoplasm of breast (principal)
CPT/HCPCS: 77063; 77067

== ENCOUNTER → 2022-03-26 10:32 | Outpatient (CLI) | payer MEDICARE, SELFPAY ==
--- NOTE | ~2022-03-26 | MM_ITS ---
EXAMINATION: MM screening [facility] BI w cindy HISTORY: Screening mammogram TECHNIQUE: Craniocaudal and mediolateral oblique 3-D tomosynthesis images were obtained and synthetic 2-D images were generated. CAD analysis was submitted and interpreted. COMPARISON: 03/24/2021, 02/14/2020, 02/10/2019 bilateral screening mammogram examinations BREAST PARENCHYMAL COMPOSITION: There are scattered areas of fibroglandular density. FINDINGS: There is no evidence of suspicious mass, calcification, or architectural distortion to sugg est malignancy in either breast. There has been no suspicious interval change. IMPRESSION: 1. No mammographic evidence of malignancy. 2. Recommend routine screening mammography in one year. BI-RADS Category 1: Negative Reviewed, dictated and finalized at location A. EL PARENT
== END ==
PROVIDERS: PCP Family Medicine Adolescent Medicine; Visit Provider Nurse Practitioner
DX: Z12.31 Encounter for screening mammogram for malignant neoplasm of breast (principal)
CPT/HCPCS: 77063; 77067

== ENCOUNTER → 2022-07-27 12:21 | Outpatient (CLI) | payer MEDICARE, SELFPAY ==
--- NOTE | ~2022-07-27 | XR_ITS ---
XR foot RT 2V 07/27/2022 13:17 Indication: Right foot pain Procedure: 2 views right foot Comparison: No prior studies for comparison. Findings: Osteopenia. Prominent degenerative calcaneal enthesophyte at the plantar surface. There is extensive atherosclerosis. No fracture or traumatic malalignment. No erosive changes. No foreign bodi es. No focal soft tissue swelling. Impression: 1: No acute bone or joint abnormality. Reviewed, dictated and finalized at location L. Impression: 1: No acute bone or joint abnormality.
== END ==
PROVIDERS: PCP Family Medicine Adolescent Medicine; Visit Provider Family Medicine Adolescent Medicine
DX: M79.671 Pain in right foot (principal)
CPT/HCPCS: 73620

== ENCOUNTER 2023-03-29 12:26 | Outpatient (CLI) | payer MEDICARE, SELFPAY ==
--- NOTE | ~2023-03-29 | MM_ITS ---
EXAMINATION: MM screening [facility] BI w cindy HISTORY: Screening mammogram TECHNIQUE: Craniocaudal and mediolateral oblique 3-D tomosynthesis images were obtained and synthetic 2-D images were generated. CAD analysis was submitted and interpreted. COMPARISON: 03/26/2022, 03/24/2021, 02/14/2020 BREAST PARENCHYMAL COMPOSITION: There are scattered areas of fibroglandular density. FINDINGS: No suspicious mass, calcification, or architectural distortion are identified in either james ast to suggest malignancy. There has been no suspicious interval change. IMPRESSION: 1. No mammographic evidence of malignancy. 2. Recommend routine screening mammography in one year. BI-RADS Category 1: Negative Reviewed, dictated and finalized at location A. EYOR MAN
== END 2023-03-29 12:27 ==
PROVIDERS: PCP Nurse Practitioner; Visit Provider Nurse Practitioner
DX: Z12.31 Encounter for screening mammogram for malignant neoplasm of breast (principal)
CPT/HCPCS: 77063; 77067

== ENCOUNTER 2023-04-01 15:47 | Outpatient (CLI) | payer MEDICARE, SELFPAY ==
[2023-04-01 16:04] LABS: Basophils Absolute Auto 0.1 K/mm3 (0.0-0.1); Basophils Percent Auto 0.4 % (0.2-1.2); Eosinophils Absolute Auto 0.2 K/mm3 (0-0.3); Eosinophils Percent Auto 1.6 % (0-4.4); Hematocrit 32.7 % (37.0-47.0); Hemoglobin 10.7 g/dL (12.0-15.0); Immature Granulocyte Absolute 0.03 K/mm3 (0.00-0.031); Immature Granulocyte Percent A 0.2 % (0-0.5); Lymphocytes Absolute Auto 5.91 K/mm3 (0.9-3.2); Lymphocytes Percent Auto 41.5 % (18.3-44.2); Mean Corpuscular HGB Conc 32.7 g/dl (32-36); Mean Corpuscular Hemoglobin 31.3 pg (26-34); Mean Corpuscular Volume 95.6 fl (80-100); Monocytes Absolute Auto 0.9 K/mm3 (0.1-0.6); Monocytes Percent Auto 6.4 % (2.6-8.5); Neutrophils Absolute Auto 7.1 K/mm3 (1.3-6.7); Neutrophils Percent Auto 49.9 % (45.5-73.1); Platelet Count Result 324 k/mm3 (150-375); Red Blood Count 3.42 M/mm3 (4.2-5.4); White Blood Count 14.2 K/mm3 (4.5-10.0)
[2023-04-01 16:14] LABS: Platelet Estimate Adequate (Adequate); Schistocytes None Seen (NORMAL)
[2023-04-01 16:15] LABS: Atypical Lymphocytes Present
[2023-04-01 16:49] LABS: Alanine Aminotransferase 20 U/L (6-35); Alkaline Phosphatase 76 U/L (38-126); Anion Gap 8 mmol/L (8-16); Aspartate Amino Transferase 27 U/L (14-36); Bilirubin,Total 0.4 mg/dL (0.2-1.3); Blood Urea Nitrogen 41 mg/dL (7-17); CRP < 0.5 mg/dL (<1.0); Calcium 9.8 mg/dL (8.4-10.2); Carbon Dioxide 27 mmol/L (22-30); Chloride 104 mmol/L (98-107); Estimated Glomerular Filt Rate 32; Glucose 241 mg/dL (65-110); Potassium 4.9 mmol/L (3.4-5.0); Sodium 139 mmol/L (137-145)
[2023-04-01 16:53] LABS: Erythrocyte Sedimentation Rate 48 mm/hr (0-20)
[2023-04-07 09:17] LABS: BCR/abl Prior Result Not Given
[2023-04-07 10:04] LABS: BCR/abl P190 Not Detected; BCR/abl P210 Not Detected
[2023-04-07 10:05] LABS: BCR/abl P190 Chg YES; BCR/abl P210 Chg YES
== END 2023-04-01 15:48 | disposition home or self-care (01) ==
PROVIDERS: PCP Nurse Practitioner; Visit Provider Internal Medicine Hematology & Oncology
DX: D72.829 Elevated white blood cell count, unspecified (principal)
CPT/HCPCS: 36415; 80053; 81206; 81207; 85025; 85652; 86140; 88184; 88185

== ENCOUNTER 2023-07-14 11:14 | Inpatient (IN) | payer MEDICARE, SELFPAY ==
--- NOTE | ~2023-07-14 | US_ITS ---
EXAMINATION: US renal BI DATE: 07/15/2023 10:00 INDICATION: Acute kidney injury. TECHNIQUE: Multiple ultrasound grayscale images of the kidneys were obtained. COMPARISON: CT abdomen and pelvis 07/14/2023 FINDINGS: There is diffuse hepatic steatosis. The right kidney measures 11.0 x 5.8 x 5.7 cm. The left kidney me asures 10.6 x 6.0 x 4.1 cm. The kidneys demonstrate normal parenchymal echogenicity. There is no hydr onephrosis. The bladder is decompressed. IMPRESSION: 1. Normal kidneys. No hydronephrosis. 2. Diffuse hepatic steatosis. Reviewed, dictated and finalized at location A.
--- NOTE | ~2023-07-14 | CT_ITS ---
EXAMINATION: CT abdomen pelvis wo con DATE: 07/14/2023 12:38 INDICATION: Low pelvic pain. Diarrhea. Blood in stool. TECHNIQUE: Computed tomography (CT) of the abdomen and pelvis was performed without intravenous contr ast. Automated exposure control and iterative reconstruction technique were employed. The dose-length product was 1172.97 mGy-cm. COMPARISON: CT abdomen and pelvis 06/12/2016 FINDINGS: The visualized portions of the lung bases demonstrate mild atelectasis. No pleural effusion . The heart size is normal. There are coronary artery calcifications. No pericardial effusion. There is diffuse hepatic steatosis. There are changes of cholecystectomy. The spleen, pancreas, adrenal gla nds, and kidneys are normal. There is no urolithiasis. There is diverticulosis of the colon without e vidence of diverticulitis. There are no dilated loops of bowel. The appendix is normal. There are wid espread arterial calcifications. There are no pathologically enlarged lymph nodes. There is no free i ntraperitoneal fluid. There is thoracolumbar dextroscoliosis. There is moderate lumbar spondylosis an d mild thoracic spondylosis. IMPRESSION: 1. No etiology for the patient's symptoms. Reviewed, dictated and finalized at location A.
[2023-07-14 11:24] VITALS: BP 105/61; PULSE 78; RESP 20; O2SAT 99
[2023-07-14 11:48] VITALS: BP 107/77; PULSE 75; RESP 15; TEMP 36.4; O2SAT 100
[2023-07-14 11:55] LABS: Basophils Percent Auto 0.3 % (0.2-1.2); Eosinophils Percent Auto 0.3 % (0-4.4); Hemoglobin 11.9 g/dL (12.0-15.0); Immature Granulocyte Absolute 0.06 K/mm3 (0.00-0.031); Immature Granulocyte Percent A 0.4 % (0-0.5); Lymphocytes Absolute Auto 3.49 K/mm3 (0.9-3.2); Lymphocytes Percent Auto 22.4 % (18.3-44.2); Mean Corpuscular HGB Conc 33.1 g/dl (32-36); Mean Corpuscular Hemoglobin 30.8 pg (26-34); Mean Corpuscular Volume 93.3 fl (80-100); Mean Platelet Volume 11.5 fl (7.4-10.4); Monocytes Percent Auto 6.1 % (2.6-8.5); Neutrophils Percent Auto 70.5 % (45.5-73.1); Platelet Count Result 310 k/mm3 (150-375); Red Blood Count 3.86 M/mm3 (4.2-5.4); Red Cell Distribution Width 14.8 % (11.5-14.5); White Blood Count 15.6 K/mm3 (4.5-10.0)
--- NOTE | 2023-07-14 11:59 | ED.ABDPAIN ---
HPI - Abdominal Pain General Chief Complaint: Abdominal Pain Stated Complaint: dont feel good Time Seen by Provider: 07/14/23 11:46 Source: patient and family () Limitations: no limitations History of Present Illness HPI narrative: Patient presents complaint generally not feeling well. She has abdominal pain since Wednesday. Her last bowel movement was scant this morning. She had had constipation then turning and diarrhea she does she blood going to the bathroom. She denies any opal hematochezia but does find that she blood after wiping. She has had decreased urinary output. Her last oral intake was some cereal on Wednesday but she states that she vomited this. She does not have appetite. She denies any vaginal discharge. She feels nauseated. She has had a few episodes of self inflicted vomiting as she felt this may improve her symptoms. She has not yet taken anything for pain. She denies any fevers but has chills. No hematuria, dysuria, or urinary urgency or frequency. Patient states she is on warfarin and takes 162mg aspirin daily. She previously saw a GI specialist Dr Jarrell (who had been at [facility] and then [facility]) but not recently. Prior colonoscopy but believes she is long overdue for another. No prior EGD. Related Data Home Medications Medication Instructions Recorded Confirmed cyanocobalamin (vitamin B-12) 1,000 mcg PO DAILY 07/17/20 07/14/23 1,000 mcg tablet (Vitamin B-12) folic acid 800 mcg tablet 0.8 mg PO DAILY 07/17/20 07/14/23 latanoprost 0.005 % eye drops 1 drp EACH EYE HS 07/17/20 07/14/23 aspirin 81 mg tablet 162 mg PO DAILY 07/01/23 07/14/23 calcium carbonate 600 mg-vitamin 1 tablet PO DAILY 07/06/23 07/14/23 D3 20 mcg (800 unit) tablet glimepiride 1 mg tablet 1 mg PO QAM 07/06/23 07/14/23 metformin 500 mg tablet,extended 1,000 mg PO BID 07/14/23 07/14/23 release 24 hr metoprolol succinate 25 mg 75 mg PO QHS 07/14/23 07/14/23 tablet,extended release 24 hr omeprazole 20 mg capsule,delayed 20 mg PO BID 07/14/23 07/14/23 release warfarin 2 mg tablet 4 mg PO QHS 07/14/23 07/14/23 Allergies Allergy/AdvReac Type Severity Reaction Status Date / Time codeine AdvReac Unknown FEEL Verified 07/06/23 14:26 LOOPY THEN GET NAUSEATED PMFSH Past Medical History Medical History (Updated 07/14/23 @ 20:41 by Beronica Vera MD) Aortic atherosclerosis Coronary artery disease Gastroesophageal reflux disease Glaucoma 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 Surgical History Surgical History (Updated 07/14/23 @ 15:07 by Sigrid Beasley PA-C) History of arthroscopy of right knee (2012) History of cholecystectomy (2015) History of coronary artery bypass graft (08/04/20) History of tubal ligation (1985) Family History Family History Mother Family history of lung cancer Hypertension Lung cancer Father Family history of heart disease in male family member before age 55 Cerebrovascular accident Acute myocardial infarction Malignant neoplasm of prostate FH: throat cancer HLD (hyperlipidemia) Other Family history of cardiovascular disease Social History Social History (Updated 07/14/23 @ 15:38 by Sigrid Beasley PA-C) Social History: Surrogate medical decision maker: Code status: Full code. Smoking status: Never smoker Second hand tobacco smoke exposure: Yes (both parents smoked, smoked for a few years) Alcohol intake: former Alcohol use details: Social drinker Substance use: never Substance use type: does not use Do You Feel Safe in your Home?: Yes Lack of Transportation: No Lack of Food: Never True Current Housing: I Have Housing Concerned About Future Housing: No Difficulty Paying
[2023-07-14 12:00] LABS: Alanine Aminotransferase 22 U/L (6-35); Albumin Level 4.2 g/dL (3.5-5.1); Alkaline Phosphatase 84 U/L (38-126); Anion Gap 15 mmol/L (4-12); Aspartate Amino Transferase 18 U/L (14-36); Bilirubin,Total 0.5 mg/dL (0.2-1.3); Blood Urea Nitrogen 103 mg/dL (7-17); Calcium 9.2 mg/dL (8.4-10.2); Carbon Dioxide 12 mmol/L (22-30); Chloride 107 mmol/L (98-107); Estimated CRCL calculation 13 ml/min; Estimated Glomerular Filt Rate 13; Glucose 201 mg/dL (65-110); Lipase 496 U/L (23-300); Potassium 4.7 mmol/L (3.4-5.0); Sodium 134 mmol/L (137-145)
--- NOTE | 2023-07-14 12:28 | ECG_ITS ---
SEE SCANNED COPY FOR CONFIRMED REPORT MTDD
[2023-07-14 12:40] LABS: INR 1.6; Prothrombin Time 20.1 Seconds (11.1-14.7)
[2023-07-14 12:41] LABS: Partial Thromboplastin Time 34.3 Seconds (22.3-36.8)
[2023-07-14 12:43] LABS: Magnesium 1.2 mg/dL (1.6-2.3); Phosphorus 4.8 mg/dL (2.5-4.5)
[2023-07-14 12:45] LABS: Lactic Acid Reflex 1.4 mmol/L (0.7-2.0)
[2023-07-14 12:54] LABS: Appearance Urine Cloudy (Clear); Bacteria Urine None Seen /hpf; Bilirubin Urine Negative (Negative); Blood Urine Negative (Negative); Color Urine Yellow (Yellow); Glucose Urine UA Negative (Negative); Granular Casts Urine Present /lpf; Hyaline Casts Urine Present /lpf; Ketones Urine Negative (Negative); Leukocyte Esterase Ur 1+ LEU/UL (Negative); Nitrate Urine Negative (Negative); Non Pathogenic Casts >20; Protein Urine Trace mg/dL (Negative); RBC Urine 0-2 /hpf (0-2); Specific Grav Ur 1.019 (1.001-1.035); Squamous Epithelial Cell Urine Occasional /hpf (Few); Urobilinogen Urine 0.2 mg/dL (<2.0)
[2023-07-14 12:56] LABS: Troponin I < 0.012 ng/mL (0.000-0.034)
[2023-07-14 12:58] LABS: Transitional Epi Cells Urine Occasional /hpf (None Seen)
[2023-07-14 13:15] LABS: Influenza A QL RT-PCR Negative (Negative); Influenza B QL RT-PCR Negative (Negative); SARS-CoV-2 RNA PCR Negative (Negative)
[2023-07-14 13:20] LABS: Add Urine Microscopic? YES
[2023-07-14] MEDS: MAGNESIUM SULF 1 GM/D5W 100 ML 1 GM/100 ML BAG IVPB (13:32)
[2023-07-14] MEDS: SODIUM CHLORIDE 0.9% IV 1,000 ML 999 ML IV CONT (13:33)
[2023-07-14 13:38] VITALS: BP 127/53; PULSE 83; RESP 18; O2SAT 98
[2023-07-14 14:20] LABS: Fractional Inspired Oxygen 21 %; HCO3 VBG 12.9 mEq/l (24.0-30.0); PCO2 VBG 33.5 mmHg (42.0-48.0)
[2023-07-14 14:22] LABS: Device ROOM AIR; PO2 VBG < 27.0 mmHg (35.0-45.0); pH VBG 7.202 (7.300-7.400)
[2023-07-14 14:32] LABS: Anion Gap 12 mmol/L (4-12); Blood Urea Nitrogen 104 mg/dL (7-17); Calcium 8.7 mg/dL (8.4-10.2); Carbon Dioxide 12 mmol/L (22-30); Chloride 109 mmol/L (98-107); Estimated CRCL calculation 13 ml/min; Estimated Glomerular Filt Rate 13; Glucose 181 mg/dL (65-110); Potassium 4.8 mmol/L (3.4-5.0); Sodium 133 mmol/L (137-145)
--- NOTE | 2023-07-14 15:04 | PM.IMHP ---
H&P: HPI History of Present Illness Date/Time: 07/14/23 15:05 Chief Complaint: Multiple complaints. Narrative: This is a pleasant 72-year-old female with coronary artery disease status post bypass in 2020, hypertension, hyperlipidemia, type 2 diabetes mellitus complicated by retinopathy and nephropathy, chronic kidney disease, gastroesophageal reflux disease, leukocytosis for which she has been referred to Hematology, and celiac and mesenteric artery thrombosis who presented to the emergency department for evaluation of multiple complaints. The patient provides the following history. Last week she felt as though she was constipated however on she finally moved her bowels and reports having multiple loose stools. At 1 point she noticed a small amount of bright red blood on the toilet tissue after having a bowel movement however that has not recurred. She has not had a bowel movement since aside from a small, semi formed but otherwise unremarkable stool this morning. In any event, she has not been feeling well since Wednesday with vague symptoms to include generalized abdominal discomfort, nausea, dry heaves, and poor oral intake. She has chills but goes on to say that is not unusual for her she is on blood thinners. Her urine output has decreased. Daughter thinks she seems to be a bit confused. She denies falls, syncope, near syncope, fever, sinus congestion, sore throat, chest pain, pleuritic pain, cough, epigastric pain, indigestion, hematemesis, melena, dysuria, urinary urgency, and urinary frequency. In the ED: She was afebrile on arrival with stable blood pressures. Labs were significant for WBC count of 15.6, hemoglobin 11.9, sodium 134, potassium 4.7, chloride 107, carbon dioxide 12, anion gap 15, BUN 103, creatinine 3.50, glucose 201, magnesium 1.2, phosphorus 4.8, lipase 496. Urine was positive for 1+ leukocyte esterase, 6 to 10 WBC, and many casts. She tested negative for influenza and COVID. CT of the abdomen and pelvis showed no etiology for the patient's symptoms. She was given 1 g ceftriaxone, 1 g magnesium sulfate, and a L normal saline bolus and she is being admitted in this setting for further evaluation of acute on chronic renal failure. Review of Systems Review of Systems: 12 systems were reviewed and are negative except for as per HPI. [facility] Past Medical History Medical History (Updated 07/14/23 @ 22:11 by Sigrid Beasley PA-C) Acute on chronic kidney failure Aortic atherosclerosis Chronic kidney disease Coronary artery disease Gastroesophageal reflux disease Glaucoma 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 Surgical History Surgical History History of arthroscopy of right knee (2012) History of cholecystectomy (2015) History of coronary artery bypass graft (08/04/20) History of tubal ligation (1985) Family History Family History Mother Family history of lung cancer Hypertension Lung cancer Father Family history of heart disease in male family member before age 55 Cerebrovascular accident Acute myocardial infarction Malignant neoplasm of prostate FH: throat cancer HLD (hyperlipidemia) Other Family history of cardiovascular disease Social History Social History (Updated 07/14/23 @ 22:07 by Sigrid Beasley PA-C) Social History: Surrogate medical decision maker: Cecilio Smallwood, spouse. Code status: Full code. Smoking status: Never smoker Second hand tobacco smoke exposure: Yes (both parents smoked, smoked for a few years) Alcohol intake: former Alcohol use details: Social drinker Substance use: never Substance use type: does not use Do You Feel Safe in your Home?: Yes Lack o
[2023-07-14 15:22] VITALS: BP 126/49; PULSE 69; RESP 18
[2023-07-14] MEDS: SODIUM CHLORIDE 0.9% IV 1,000 ML 125 ML IV CONT ×2 (15:22→22:50)
[2023-07-14 16:10] VITALS: BP 101/51; PULSE 80; RESP 16; TEMP 36.1; O2SAT 97
--- NOTE | 2023-07-14 16:41 | ADMGEN ---
This patient, Sue Smallwood, was admitted to 3 Med Surg Room 312-01. Patient/family oriented to hospital policies and general routines including ID bracelet, bed and alarms, visiting hours, pain management, procedures, bathroom and other care routines, personal items, smoking policy, room service/diet, and visiting hours. Information on how to activate the Rapid Response Team has been discussed. Patient/Family are encouraged to report perceived risks to care and to ask questions if they do not understand what they are told or what they should do.
[2023-07-14 22:00] VITALS: BP 129/42; PULSE 80; RESP 16; TEMP 36.6; O2SAT 98
[2023-07-14 22:03] LABS: Glucose Point of Care 112 mg/dl (65-105)
[2023-07-14] MEDS: WARFARIN (*PBKC) 4 MG TABLET PO (22:49)
[2023-07-14] MEDS: ATORVASTATIN 40 MG TABLET PO (22:49)
[2023-07-14] MEDS: LATANOPROST 0.005% OP SOLN 2.5 ML BTL 1 DROP EACH EYE (22:49)
[2023-07-14 23:03] LABS: Anion Gap 12 mmol/L (4-12); Blood Urea Nitrogen 92 mg/dL (7-17); CRP 4.7 mg/dL (<1.0); Calcium 8.7 mg/dL (8.4-10.2); Carbon Dioxide 11 mmol/L (22-30); Chloride 114 mmol/L (98-107); Creatine Kinase 56 U/L (30-135); Estimated CRCL calculation 17 ml/min; Estimated Glomerular Filt Rate 17; Glucose 96 mg/dL (65-110); Hemoglobin A1C 7.9 % (<5.7); Magnesium 1.5 mg/dL (1.6-2.3); Sodium 137 mmol/L (137-145)
[2023-07-15 00:10] LABS: Erythrocyte Sedimentation Rate 138 mm/hr (0-20)
[2023-07-15] MEDS: MAGNESIUM SULF 1 GM/D5W 100 ML 1 GM/100 ML BAG IVPB (01:18)
[2023-07-15] MEDS: SODIUM BICARBONATE 8.4% 150 MEQ in WATER, STERILE FOR INJECTION 950 ML 100 MEQ IV CONT (02:15)
[2023-07-15 06:00] VITALS: BP 139/50; PULSE 80; RESP 16; TEMP 36.6; O2SAT 98
[2023-07-15 06:26] LABS: Hematocrit 30.6 % (37.0-47.0); Mean Corpuscular HGB Conc 32.7 g/dl (32-36); Mean Corpuscular Hemoglobin 30.8 pg (26-34); Mean Corpuscular Volume 94.2 fl (80-100); Mean Platelet Volume 11.2 fl (7.4-10.4); Platelet Count Result 260 k/mm3 (150-375); Red Blood Count 3.25 M/mm3 (4.2-5.4); Red Cell Distribution Width 14.9 % (11.5-14.5); White Blood Count 15.3 K/mm3 (4.5-10.0)
[2023-07-15 06:36] LABS: Anion Gap 7 mmol/L (4-12); Blood Urea Nitrogen 85 mg/dL (7-17); Calcium 8.8 mg/dL (8.4-10.2); Carbon Dioxide 16 mmol/L (22-30); Chloride 113 mmol/L (98-107); Estimated CRCL calculation 19 ml/min; Estimated Glomerular Filt Rate 20; Glucose 73 mg/dL (65-110); Magnesium 1.8 mg/dL (1.6-2.3); Phosphorus 3.4 mg/dL (2.5-4.5); Potassium 4.9 mmol/L (3.4-5.0); Sodium 136 mmol/L (137-145)
[2023-07-15 07:28] LABS: Creatinine Urine 42.5 mg/dL; Total Protein Urine Random 19 mg/dL; Ur Ttl Prot Creatinine Ratio 0.45 mg/mg (0-0.20)
[2023-07-15 07:30] LABS: Potassium Urine Random 9.1 meq/L; Sodium Urine Random 36 meq/L
[2023-07-15 07:31] LABS: Eosinophil Urine None Seen % (None Seen); Urine Eos QC 2nd Tech Confirmed
[2023-07-15 07:42] LABS: Urea Random Urine 569 MG/DL
[2023-07-15 08:14] LABS: Glucose Point of Care 72 mg/dl (65-105)
--- NOTE | 2023-07-15 09:32 | P.PNIM_ITS ---
Progress Note: A&P Assessment and Plan (1) Acute on chronic kidney failure: Code(s): N17.9 - Acute kidney failure, unspecified; N18.9 - Chronic kidney disease, unspecified Status: Acute Assessment and Plan: Cr from 03/2023 was 1.60. Cr on admission is 3.50, BUN 85, and CFR 20 * nephrology consulted, rec's appreciated * Urine studies ordered and pending * Renal ultrasound ordered * CT abdomen does not show acute process to explain elevation. * Cr is improving with fluids. Suspect pre-renal etiology 2/2 dehydration. * Avoid nephrotoxic agents, renally dose medications (2) Metabolic acidosis: Code(s): E87.20 - Acidosis, unspecified Status: Acute Assessment and Plan: * CO2 12 on admission with VBG showing metabolic acidosis * CO2 16 today * On Bicarb gtt @ 100 ml per hour * repeat BMP this afternoon (3) Hypomagnesemia: Code(s): E83.42 - Hypomagnesemia Status: Acute Assessment and Plan: Mg 1.2 on admission * total of 2 grams mg received * Mg 1.8 this morning * Added Mg ox today (4) Abdominal pain: Code(s): R10.9 - Unspecified abdominal pain Status: Acute Assessment and Plan: Unclear etiology * CT abdomen and pelvis with no acute findings * Hx of mesenteric and celiac thrombosis but again CT negative * Worsening renal function playing a role in abdominal complaints? * lipase mildly elevated at 496 (5) Leukocytosis: Code(s): D72.829 - Elevated white blood cell count, unspecified Status: Acute Assessment and Plan: chronic leukocytosis * ranging anywhere from 13-15 * afebrile * needs work up with heme (6) Type 2 diabetes mellitus: Code(s): E11.9 - Type 2 diabetes mellitus without complications Status: Acute Assessment and Plan: hemoglobin A1C 7.9% * Blood glucose 73 * Lantus home dose decreased by 20% to 12 units nightly * D/C SSI at bedtime * Moderate dose SSI (7) Coronary artery disease: Code(s): I25.10 - Atherosclerotic heart disease of [place] coronary artery without angina pectoris Status: Acute Assessment and Plan: On ASA 162 mg daily, Atorvastatin 40 mg, Metoprolol succinate 75 mg daily, Lisinopril 20 mg daily (on hold due to NILESH), and warfarin 4mg daily. 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 07/14: Patient is seen resting in bed in no acute distress. She states her abdominal pain has resolved but she is having back pain from being on the stretcher in the ED. She is having a lot of urine output now and she also had a bowel movement today. She denies constipation. She does report some hemorrhoids with associated discomfort during stooling and small amount of bright red blood. I offered her suppo
--- NOTE | 2023-07-15 09:32 | PM.IMPN ---
Progress Note: A&P Assessment and Plan (1) Acute on chronic kidney failure: Code(s): N17.9 - Acute kidney failure, unspecified; N18.9 - Chronic kidney disease, unspecified Status: Acute Assessment and Plan: Cr from 03/2023 was 1.60. Cr on admission is 3.50, BUN 85, and CFR 20 nephrology consulted, rec's appreciated Urine studies ordered and pending Renal ultrasound ordered CT abdomen does not show acute process to explain elevation. Cr is improving with fluids. Suspect pre-renal etiology 2/2 dehydration. Avoid nephrotoxic agents, renally dose medications (2) Metabolic acidosis: Code(s): E87.20 - Acidosis, unspecified Status: Acute Assessment and Plan: CO2 12 on admission with VBG showing metabolic acidosis CO2 16 today On Bicarb gtt @ 100 ml per hour repeat BMP this afternoon (3) Hypomagnesemia: Code(s): E83.42 - Hypomagnesemia Status: Acute Assessment and Plan: Mg 1.2 on admission total of 2 grams mg received Mg 1.8 this morning Added Mg ox today (4) Abdominal pain: Code(s): R10.9 - Unspecified abdominal pain Status: Acute Assessment and Plan: Unclear etiology CT abdomen and pelvis with no acute findings Hx of mesenteric and celiac thrombosis but again CT negative Worsening renal function playing a role in abdominal complaints? lipase mildly elevated at 496 (5) Leukocytosis: Code(s): D72.829 - Elevated white blood cell count, unspecified Status: Acute Assessment and Plan: chronic leukocytosis ranging anywhere from 13-15 afebrile needs work up with heme (6) Type 2 diabetes mellitus: Code(s): E11.9 - Type 2 diabetes mellitus without complications Status: Acute Assessment and Plan: hemoglobin A1C 7.9% Blood glucose 73 Lantus home dose decreased by 20% to 12 units nightly D/C SSI at bedtime Moderate dose SSI (7) Coronary artery disease: Code(s): I25.10 - Atherosclerotic heart disease of [place] coronary artery without angina pectoris Status: Acute Assessment and Plan: On ASA 162 mg daily, Atorvastatin 40 mg, Metoprolol succinate 75 mg daily, Lisinopril 20 mg daily (on hold due to NILESH), and warfarin 4mg daily. 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 07/14: Patient is seen resting in bed in no acute distress. She states her abdominal pain has resolved but she is having back pain from being on the stretcher in the ED. She is having a lot of urine output now and she also had a bowel movement today. She denies constipation. She does report some hemorrhoids with associated discomfort during stooling and small amount of bright red blood. I offered her suppositories or cream for this but she declined. Her labs are beginning to normalize with IV bicarb gtt. Review of Systems Review of Systems: 12 systems were reviewed and are negative except for as per HPI. All systems reviewed & are unremarkable except as noted in HPI and below Exam Narrative: General: well appearing, appears stated age. HEENT: normocephalic, atraumatic. Mucous membranes moist. JENNIFER P
[2023-07-15] MEDS: MAGNESIUM OXIDE 400 MG TABLET PO (10:11)
[2023-07-15] MEDS: PANTOPRAZOLE 40 MG TABLET PO ×2 (10:11→17:12)
[2023-07-15] MEDS: ASPIRIN 81 MG CHEWABLE TABLET 162 MG PO (10:12)
[2023-07-15] MEDS: FOLIC ACID 0.4 MG TABLET 0.8 MG PO (10:12)
[2023-07-15] MEDS: CYANOCOBALAMIN 1,000 MCG TABLET 1000 MCG PO (10:12)
[2023-07-15] MEDS: CALCIUM/VITAMIN D 500 MG/5 MCG (200 I.U.) TABLET PO (10:12)
[2023-07-15 10:54] VITALS: BMI 37.6
[2023-07-15 12:14] LABS: Glucose Point of Care 202 mg/dl (65-105)
[2023-07-15] MEDS: INSULIN ASPART (*BKC) 100 UNITS/ML SUB-Q (12:16)
--- NOTE | 2023-07-15 13:20 | PM.CNNEP ---
Assessment and Plan Assessment and plan (1) NILESH (acute kidney injury): Code(s): N17.9 - Acute kidney failure, unspecified Status: Acute Assessment and Plan: improvement noted presumably due to volume depletion/dehydration possibly worsening due to BRIGITTE-I and NSAID use prior to admission evaluation to date: renal ultrasound okay urine electrolytes prerenal CPK okay urine eosinophils negative moderate proteinuria follow repeat labs and UOP (2) Stage 3b chronic kidney disease: Code(s): N18.32 - Chronic kidney disease, stage 3b Status: Chronic Assessment and Plan: creatinine running 1.4 - 1.6mg/dl since early 2023 suspect due to diabetes, hypertension, vascular disease, and age-related change will proceed with serological testing for further evaluation (3) Metabolic acidosis: Code(s): E87.20 - Acidosis, unspecified Status: Acute Assessment and Plan: due to NILESH/ARF resolving with current interventions follow CO2 levels (4) Hypomagnesemia: Code(s): E83.42 - Hypomagnesemia Status: Acute Assessment and Plan: repleted in ER follow trend (5) Hypertension: Code(s): I10 - Essential (primary) hypertension Status: Chronic Assessment and Plan: reasonable control at this time follow trend of hemodynamics (6) Type 2 diabetes mellitus: Code(s): E11.9 - Type 2 diabetes mellitus without complications Status: Chronic Assessment and Plan: follow accu-cheks glycemic control per hospitalists I will continue follow patient with you while she remains hospitalized and make further recommendations as deemed necessary. Thank you for allowing me to participate in care of this patient. History of Present Illness Reason for Consult Consult date: 07/15/23 Reason for consult: acute renal failure (on chronic kidney disease) Chief Complaint Chief complaint: acute renal failure History of Present Illness Narrative: The patient is a 72-year-old female with a past medical history as outlined below who presented to [facility] Emergency room with multiple complaints. The patient states that she has not been feeling well for last week with symptoms of generalized abdominal discomfort, nausea, dry heaves, poor oral intake, and on of chills. Prior to these symptoms, she had some issues and problems with constipation but that seems to have resolved. Further complicating matters is the fact that she has noted that her urine output has decreased and her family seems to think she seems a bit more confused in general. She reported no fevers, chills, syncope, sore throat, chest pain, shortness of breath, productive cough, melena, hematemesis, or dysuria. Given these constellation of symptoms, she came to the ER for further assessment. Workup and evaluation emergency room demonstrated the patient be hemodynamically stable and afebrile. Routine blood tests were done which demonstrated a white blood cell count of 15.6, relative anemia, and elevated BUN and creatinine far above her baseline in association with a metabolic acidosis. Viral testing for influenza, RSV, and Covid was negative and her urinalysis was significant for 1+ leukocyte esterase, 6-10 white blood cells, and many casts. A CT scan of the abdomen pelvis demonstrated no acute intra-abdominal pathology. She was initiated on IV fluids given her acute kidney injury as well as antibiotics and IV magnesium after appropriate cultures were obtained. She was subsequently admitted to the hospital for further evaluation and therapy. Since her admission, with ongoing therapy as initiated in the emergency room, her renal function has improved significantly from an admission creatinine of 3.5 mg/dL down to 2.0 mg/dL. Renal consultation was requested due to her acute kidney injury on top of her baseline chronic kidney disease. The patient is somewhat
[2023-07-15 14:00] VITALS: BP 146/58; PULSE 80; RESP 16; TEMP 36.4; O2SAT 98
[2023-07-15 15:43] LABS: Alanine Aminotransferase 15 U/L (6-35); Albumin Level 3.2 g/dL (3.5-5.1); Alkaline Phosphatase 73 U/L (38-126); Anion Gap 8 mmol/L (4-12); Aspartate Amino Transferase 16 U/L (14-36); Bilirubin,Total 0.3 mg/dL (0.2-1.3); Blood Urea Nitrogen 71 mg/dL (7-17); Calcium 8.5 mg/dL (8.4-10.2); Carbon Dioxide 18 mmol/L (22-30); Chloride 111 mmol/L (98-107); Estimated CRCL calculation 23 ml/min; Estimated Glomerular Filt Rate 24; Glucose 127 mg/dL (65-110); Sodium 137 mmol/L (137-145)
[2023-07-15 16:53] LABS: Glucose Point of Care 127 mg/dl (65-105)
[2023-07-15] MEDS: WARFARIN (*PBKC) 4 MG TABLET PO (17:12)
[2023-07-15] MEDS: INSULIN GLARGINE (*BKC) 100 UNITS/ML 12 UNITS SUB-Q (17:12)
[2023-07-15 20:00] VITALS: O2SAT 98
[2023-07-15] MEDS: ATORVASTATIN 40 MG TABLET PO (21:08)
[2023-07-15] MEDS: LATANOPROST 0.005% OP SOLN 2.5 ML BTL 1 DROP EACH EYE (21:08)
[2023-07-15] MEDS: METOPROLOL SUCCINATE EXT REL 25 MG TABCR 75 MG PO (21:08)
[2023-07-15 21:09] VITALS: O2SAT 99
[2023-07-15 21:13] LABS: Glucose Point of Care 137 mg/dl (65-105)
[2023-07-15 21:31] VITALS: BP 144/47; PULSE 87; RESP 16; TEMP 36.6; O2SAT 99
[2023-07-16 05:38] VITALS: BP 130/51; PULSE 73; RESP 16; TEMP 36.6; O2SAT 97
[2023-07-16 06:15] LABS: Basophils Absolute Auto 0.1 K/mm3 (0.0-0.1); Basophils Percent Auto 0.3 % (0.2-1.2); Eosinophils Absolute Auto 0.3 K/mm3 (0-0.3); Eosinophils Percent Auto 1.6 % (0-4.4); Hematocrit 30.2 % (37.0-47.0); Hemoglobin 9.6 g/dL (12.0-15.0); Immature Granulocyte Absolute 0.06 K/mm3 (0.00-0.031); Immature Granulocyte Percent A 0.4 % (0-0.5); Lymphocytes Absolute Auto 6.11 K/mm3 (0.9-3.2); Lymphocytes Percent Auto 38.5 % (18.3-44.2); Mean Corpuscular HGB Conc 31.8 g/dl (32-36); Mean Corpuscular Hemoglobin 30.2 pg (26-34); Mean Platelet Volume 10.9 fl (7.4-10.4); Monocytes Absolute Auto 1.1 K/mm3 (0.1-0.6); Neutrophils Absolute Auto 8.3 K/mm3 (1.3-6.7); Neutrophils Percent Auto 52.2 % (45.5-73.1); Platelet Count Result 288 k/mm3 (150-375); Red Blood Count 3.18 M/mm3 (4.2-5.4); Red Cell Distribution Width 15.1 % (11.5-14.5); White Blood Count 15.9 K/mm3 (4.5-10.0)
[2023-07-16 06:38] LABS: Alanine Aminotransferase 14 U/L (6-35); Albumin Level 3.3 g/dL (3.5-5.1); Alkaline Phosphatase 74 U/L (38-126); Anion Gap 7 mmol/L (4-12); Aspartate Amino Transferase 17 U/L (14-36); Bilirubin,Total 0.3 mg/dL (0.2-1.3); Blood Urea Nitrogen 53 mg/dL (7-17); Carbon Dioxide 22 mmol/L (22-30); Chloride 112 mmol/L (98-107); Estimated CRCL calculation 23 ml/min; Estimated Glomerular Filt Rate 24; Glucose 108 mg/dL (65-110); Magnesium 1.7 mg/dL (1.6-2.3); Sodium 141 mmol/L (137-145)
[2023-07-16 06:39] LABS: Complement C3 155 mg/dL (88-165)
[2023-07-16 06:46] LABS: Anisocytosis 1+; Platelet Estimate Adequate (Adequate); Poikilocytosis 1+; Schistocytes None Seen
[2023-07-16 08:36] LABS: INR 2.2; Prothrombin Time 26.3 Seconds (11.1-14.7)
--- NOTE | 2023-07-16 08:37 | P.PNIM_ITS ---
Progress Note: A&P Assessment and Plan (1) Acute on chronic kidney failure: Code(s): N17.9 - Acute kidney failure, unspecified; N18.9 - Chronic kidney disease, unspecified Status: Acute Assessment and Plan: Cr from 03/2023 was 1.60. Cr on admission is 3.50, BUN 85, and CFR 20 * nephrology consulted, rec's appreciated * Urine studies ordered and pending * Renal ultrasound revealed normal kidney without hydronephrosis. Diffuse hepatic steatosis. * CT abdomen does not show acute process to explain elevation. * Cr is improving with fluids. Suspect pre-renal etiology 2/2 dehydration. * Avoid nephrotoxic agents, renally dose medications (2) Metabolic acidosis: Code(s): E87.20 - Acidosis, unspecified Status: Acute Assessment and Plan: * CO2 12 on admission with VBG showing metabolic acidosis * CO2 22 today * On Bicarb gtt @ 100 ml per hour (3) Hypomagnesemia: Code(s): E83.42 - Hypomagnesemia Status: Acute Assessment and Plan: Mg 1.2 on admission * Mg 1.7 this morning * Continue Mg ox * Monitor with am labs (4) Abdominal pain: Code(s): R10.9 - Unspecified abdominal pain Status: Acute Assessment and Plan: Unclear etiology * CT abdomen and pelvis with no acute findings * Hx of mesenteric and celiac thrombosis but again CT negative * Worsening renal function playing a role in abdominal complaints? * lipase mildly elevated at 496 (5) Leukocytosis: Code(s): D72.829 - Elevated white blood cell count, unspecified Status: Acute Assessment and Plan: chronic leukocytosis * ranging anywhere from 13-15 * afebrile * needs work up with heme (6) Type 2 diabetes mellitus: Code(s): E11.9 - Type 2 diabetes mellitus without complications Status: Acute Assessment and Plan: hemoglobin A1C 7.9% * Blood glucose 73 * Lantus home dose decreased by 20% to 12 units nightly * D/C SSI at bedtime * Moderate dose SSI (7) Coronary artery disease: Code(s): I25.10 - Atherosclerotic heart disease of [place] coronary artery without angina pectoris Status: Acute Assessment and Plan: On ASA 162 mg daily, Atorvastatin 40 mg, Metoprolol succinate 75 mg daily, Lisinopril 20 mg daily (on hold due to NILESH), and warfarin 4mg daily. 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 Review of Systems Review of Systems: All systems reviewed & are unremarkable except as noted in HPI and below Exam Narrative: AF General: well nourished, well-developed female in no acute respiratory distress who is nontoxic appearing, lying semi recumbent in bed. HEENT: Normocephalic. Atraumatic. Pupils equal round reactive to light. Extraoc ular movement intact. Sclera clear and anicteric. Nares patent. No oral lesions. Moist mucous membranes. Tongue is midline. Palate teressa symmetrically. No facial asymmetry. Neck: Neck was supple. No dominant adenopathy, thyromegaly or masses. 2+ carotid upstrokes without bruits.
--- NOTE | 2023-07-16 08:37 | PM.IMPN ---
Progress Note: A&P Assessment and Plan (1) Acute on chronic kidney failure: Code(s): N17.9 - Acute kidney failure, unspecified; N18.9 - Chronic kidney disease, unspecified Status: Acute Assessment and Plan: Cr from 03/2023 was 1.60. Cr on admission is 3.50, BUN 85, and CFR 20 nephrology consulted, rec's appreciated Urine studies ordered and pending Renal ultrasound revealed normal kidney without hydronephrosis. Diffuse hepatic steatosis. CT abdomen does not show acute process to explain elevation. Cr is improving with fluids. Suspect pre-renal etiology 2/2 dehydration. Avoid nephrotoxic agents, renally dose medications (2) Metabolic acidosis: Code(s): E87.20 - Acidosis, unspecified Status: Acute Assessment and Plan: CO2 12 on admission with VBG showing metabolic acidosis CO2 22 today On Bicarb gtt @ 100 ml per hour (3) Hypomagnesemia: Code(s): E83.42 - Hypomagnesemia Status: Acute Assessment and Plan: Mg 1.2 on admission Mg 1.7 this morning Continue Mg ox Monitor with am labs (4) Abdominal pain: Code(s): R10.9 - Unspecified abdominal pain Status: Acute Assessment and Plan: Unclear etiology CT abdomen and pelvis with no acute findings Hx of mesenteric and celiac thrombosis but again CT negative Worsening renal function playing a role in abdominal complaints? lipase mildly elevated at 496 (5) Leukocytosis: Code(s): D72.829 - Elevated white blood cell count, unspecified Status: Acute Assessment and Plan: chronic leukocytosis ranging anywhere from 13-15 afebrile needs work up with heme (6) Type 2 diabetes mellitus: Code(s): E11.9 - Type 2 diabetes mellitus without complications Status: Acute Assessment and Plan: hemoglobin A1C 7.9% Blood glucose 73 Lantus home dose decreased by 20% to 12 units nightly D/C SSI at bedtime Moderate dose SSI (7) Coronary artery disease: Code(s): I25.10 - Atherosclerotic heart disease of [place] coronary artery without angina pectoris Status: Acute Assessment and Plan: On ASA 162 mg daily, Atorvastatin 40 mg, Metoprolol succinate 75 mg daily, Lisinopril 20 mg daily (on hold due to NILESH), and warfarin 4mg daily. 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 Review of Systems Review of Systems: All systems reviewed & are unremarkable except as noted in HPI and below Exam Narrative: AF General: well nourished, well-developed female in no acute respiratory distress who is nontoxic appearing, lying semi recumbent in bed. HEENT: Normocephalic. Atraumatic. Pupils equal round reactive to light. Extraocular movement intact. Sclera clear and anicteric. Nares patent. No oral lesions. Moist mucous membranes. Tongue is midline. Palate teressa symmetrically. No facial asymmetry. Neck: Neck was supple. No dominant adenopathy, thyromegaly or masses. 2+ carotid upstrokes without bruits. Chest: Lungs are clear to auscultation bilaterlly. No wheezes or crackles. CV: Heart was regular rate and rhythm. S1-S2. No murmurs, gallops, or rubs. Abd: Abdomen was soft. Nontender. Nondistended. Postive bowel sounds. No organomegaly or masses. Ext: No clubbing, cyanosis, or edema. 2+ DP pulses bilaterally. Neuro: Patient is alert and oriented x4. Strenth is 5/5 in both upper and lower extremities. Cranial nerves 2-12 are intact. Speech is clear. Psyc
[2023-07-16] MEDS: MAGNESIUM OXIDE 400 MG TABLET PO (08:38)
[2023-07-16] MEDS: CYANOCOBALAMIN 1,000 MCG TABLET 1000 MCG PO (08:38)
[2023-07-16] MEDS: FOLIC ACID 0.4 MG TABLET 0.8 MG PO (08:38)
[2023-07-16] MEDS: ASPIRIN 81 MG CHEWABLE TABLET 162 MG PO (08:38)
[2023-07-16] MEDS: PANTOPRAZOLE 40 MG TABLET PO (08:38)
[2023-07-16] MEDS: CALCIUM/VITAMIN D 500 MG/5 MCG (200 I.U.) TABLET PO (08:38)
[2023-07-16 09:04] LABS: Lipase 225 U/L (23-300)
[2023-07-16 11:16] LABS: Glucose Point of Care 122 mg/dl (65-105)
--- NOTE | 2023-07-16 11:17 | P.PNNP_ITS ---
Progress Note: A&P Assessment and Plan (1) NILESH (acute kidney injury): Code(s): N17.9 - Acute kidney failure, unspecified Status: Acute Assessment and Plan: * improvement noted * presumably due to volume depletion/dehydration * possibly worsening due to BRIGITTE-I and NSAID use prior to admission * evaluation to date: * renal ultrasound okay * urine electrolytes prerenal * CPK okay * urine eosinophils negative * moderate proteinuria * follow repeat labs and UOP (2) Stage 3b chronic kidney disease: Code(s): N18.32 - Chronic kidney disease, stage 3b Status: Chronic Assessment and Plan: * creatinine running 1.4 - 1.6mg/dl since early 2023 * suspect due to diabetes, hypertension, vascular disease, and age-related change * serological testing pending for further evaluation (3) Metabolic acidosis: Code(s): E87.20 - Acidosis, unspecified Status: Acute Assessment and Plan: * due to NILESH/ARF * resolving with current interventions * follow CO2 levels (4) Hypomagnesemia: Code(s): E83.42 - Hypomagnesemia Status: Acute Assessment and Plan: * repleted in ER * follow trend (5) Hypertension: Code(s): I10 - Essential (primary) hypertension Status: Chronic Assessment and Plan: * reasonable control at this time * follow trend of hemodynamics (6) Type 2 diabetes mellitus: Code(s): E11.9 - Type 2 diabetes mellitus without complications Status: Chronic Assessment and Plan: * follow accu-cheks * glycemic control per hospitalists Will continue to follow. Subjective Date/time seen: 07/16/23 11:17 Interval history: Follow-up on acute kidney injury/acute renal failure on chronic kidney disease. Renal function has continues to improve with current therapy/interventions; overall, she feels significantly better in comparison to admission; no apparent distress noted; no other issues/events overnight or earlier this morning. Exam Narrative: General: WD/WN female in NAD Heart: normal S1 and S2; no rub Lungs: clear to auscultation Abdomen: soft, nontender, nondistended, positive bowel sounds Extremities: no cyanosis or clubbing; no edema Skin: warm and dry Objective Data Vital Signs Vital Signs: Vital Signs Temp Pulse Resp BP Pulse Ox O2 Del Method 07/16/23 11:00 97.7 F 77 16 122/49 L 97 07/16/23 08:35 Room Air 07/16/23 05:38 97.8 F 73 16 130/51 L 97 07/15/23 21:09 99 Room Air 07/15/23 21:31 97.8 F 87 16 144/47 H 99 07/15/23 20:00 98 Room Air Intake/Output Intake/Output: Intake & Output 07/13/23 07/14/23 07/15/23 07/16/23 23:59 23:59 23:59 23:59 Intake Total 3.3 1438 1090 Output Total 500 600 Balance 2032.3 938 490 Meds/Results Medications: Active Medications Generic Name Dose Route Start Last Admin Trade Name Freq PRN Reason Stop Dose Admin Acetaminophen 500 mg 07/15/23 09:58 Acetaminophen 500 Mg Tablet PO Q6H PRN Mild Pain (1-3) or Fever Aspirin 162 mg 07/15/23 08:00 07/16/23 08:38 Aspirin 81 Mg
--- NOTE | 2023-07-16 11:17 | PM.PNNEP ---
Progress Note: A&P Assessment and Plan (1) NILESH (acute kidney injury): Code(s): N17.9 - Acute kidney failure, unspecified Status: Acute Assessment and Plan: improvement noted presumably due to volume depletion/dehydration possibly worsening due to BRIGITTE-I and NSAID use prior to admission evaluation to date: renal ultrasound okay urine electrolytes prerenal CPK okay urine eosinophils negative moderate proteinuria follow repeat labs and UOP (2) Stage 3b chronic kidney disease: Code(s): N18.32 - Chronic kidney disease, stage 3b Status: Chronic Assessment and Plan: creatinine running 1.4 - 1.6mg/dl since early 2023 suspect due to diabetes, hypertension, vascular disease, and age-related change serological testing pending for further evaluation (3) Metabolic acidosis: Code(s): E87.20 - Acidosis, unspecified Status: Acute Assessment and Plan: due to NILESH/ARF resolving with current interventions follow CO2 levels (4) Hypomagnesemia: Code(s): E83.42 - Hypomagnesemia Status: Acute Assessment and Plan: repleted in ER follow trend (5) Hypertension: Code(s): I10 - Essential (primary) hypertension Status: Chronic Assessment and Plan: reasonable control at this time follow trend of hemodynamics (6) Type 2 diabetes mellitus: Code(s): E11.9 - Type 2 diabetes mellitus without complications Status: Chronic Assessment and Plan: follow accu-cheks glycemic control per hospitalists Will continue to follow. Subjective Date/time seen: 07/16/23 11:17 Interval history: Follow-up on acute kidney injury/acute renal failure on chronic kidney disease. Renal function has continues to improve with current therapy/interventions; overall, she feels significantly better in comparison to admission; no apparent distress noted; no other issues/events overnight or earlier this morning. Exam Narrative: General: WD/WN female in NAD Heart: normal S1 and S2; no rub Lungs: clear to auscultation Abdomen: soft, nontender, nondistended, positive bowel sounds Extremities: no cyanosis or clubbing; no edema Skin: warm and dry Objective Data Vital Signs Vital Signs: Vital Signs Temp Pulse Resp BP Pulse Ox O2 Del Method 07/16/23 11:00 97.7 F 77 16 122/49 L 97 07/16/23 08:35 Room Air 07/16/23 05:38 97.8 F 73 16 130/51 L 97 07/15/23 21:09 99 Room Air 07/15/23 21:31 97.8 F 87 16 144/47 H 99 07/15/23 20:00 98 Room Air Intake/Output Intake/Output: Intake & Output 07/13/23 07/14/23 07/15/23 07/16/23 23:59 23:59 23:59 23:59 Intake Total 2033.3 1438 1090 Output Total 500 600 Balance 3.3 938 490 Meds/Results Medications: Active Medications Generic Name Dose Route Start Last Admin Trade Name Freq PRN Reason Stop Dose Admin Acetaminophen 500 mg 07/15/23 09:58 Acetaminophen 500 Mg Tablet PO Q6H PRN Mild Pain (1-3) or Fever Aspirin 162 mg 07/15/23 08:00 07/16/23 08:38 Aspirin 81 Mg Chewable Tablet PO 162 mg DAILY@0800 KE Administration Atorvastatin Calcium 40 mg 07/14/23 22:30 07/15/23 21:08 Atorvastatin 40 Mg Tablet PO 40 mg HS KE Administration Calcium Carbonate 500 mg 07/15/23 09:00 07/16/23 08:38 Calcium/Vitamin D 500 Mg/5 Mcg (200 I.U.) Tablet PO 500 mg QAM KE Administration Cyanocobalamin 1,000 mcg 07/15/23 09:00 07/16/23 08:38 Cyanocobalamin 1,000 Mcg Tablet PO 1,000 mcg DAILY KE Administration Dextrose 12.5 gm 07/14/23 22:17 Dextrose 50% 25 Gm/50 Ml Syringe IV PUSH PRN PRN Hypoglycemia Protocol Folic Acid 0.8 mg 07/15/23 09:00 07/16/23 08:38 Folic Acid 0.4 Mg Tablet PO 0.8 mg QAM KE Administration Glucagon 1 mg 07/14/23 22:17 Glucagon For Inj 1 Mg Vial IM PRN PRN Hypoglycemia Protocol
[2023-07-16 12:01] LABS: Glucose Point of Care 264 mg/dl (65-105)
[2023-07-16] MEDS: INSULIN ASPART (*BKC) 100 UNITS/ML SUB-Q (12:49)
--- NOTE | 2023-07-16 13:02 | PM.DS ---
DS: Admitting Diagnosis Discharge Date 07/16/2023 Admitting Diagnosis Acute on chronic kidney failure Metabolic acidosis Hypomagnesemia Abdominal pain Leukocytosis Type 2 diabetes Coronary artery disease DS: Discharge Diagnosis Discharge Diagnosis (1) Acute on chronic kidney failure: Code(s): N17.9 - Acute kidney failure, unspecified; N18.9 - Chronic kidney disease, unspecified Status: Acute (2) Metabolic acidosis: Code(s): E87.20 - Acidosis, unspecified Status: Acute (3) Hypomagnesemia: Code(s): E83.42 - Hypomagnesemia Status: Acute (4) Abdominal pain: Code(s): R10.9 - Unspecified abdominal pain Status: Acute (5) Leukocytosis: Code(s): D72.829 - Elevated white blood cell count, unspecified Status: Acute (6) Type 2 diabetes mellitus: Code(s): E11.9 - Type 2 diabetes mellitus without complications Status: Acute (7) Coronary artery disease: Code(s): I25.10 - Atherosclerotic heart disease of [place] coronary artery without angina pectoris Status: Acute DS: Summary Hospital Course Reason for hospitalization: Acute on chronic kidney failure Metabolic acidosis Hypomagnesemia Abdominal pain Leukocytosis Type 2 diabetes Coronary artery disease Hospital Course: 72-year-old female with coronary artery disease status post bypass in 2020, hypertension, hyperlipidemia, type 2 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 Labs showed baseline leukocytosis for which patient has an appointment on July 25 with hematology for. She was noted to have acute on chronic kidney failure. All imaging was unremarkable. She has been following Dr. Williamson outpatient. The worsening kidney function was likely due to dehydration as the patient noted multiple loose bowel movement and decreased fluid intake. With IV fluids the BUN/Cr have been downtrending. She has good urine output. She will obtain an outpatient CMP to monitor her kidney function. She states she has a follow up appointment with Dr. Williamson on the as well. Prior to admission she was denying all pain, shortness of breath, nausea/vomiting, weakness, and changes in bowel/bladder. Patient discharged home in stable condition. She is to follow up with her PCP in 1 week. She will obtain a CBC and CMP outpatient and follow up with heme and nephrology as scheduled. Status at Discharge Functional status at discharge: uses cane/walker Time Spent with Patient Time attestation: Total time spent providing and/or coordinating discharge services: Time spent: Greater than 30 minutes Exam Narrative: AF HR 77 RR 16 SpO2 97 BP 122/49 General: female in no acute respiratory distress who is nontoxic appearing, lying semi recumbent in bed. HEENT: Normocephalic. Atraumatic. Pupils equal round reactive to light. Extraocular movement intact. Sclera clear and anicteric. No facial asymmetry. Chest: Lungs are clear to auscultation bilaterally. No wheezes or crackles. CV: Heart was regular rate and rhythm. S1-S2. No murmurs, gallops, or rubs. Abd: Abdomen was soft. Nontender. Nondistended. Positive bowel sounds. No organomegaly or masses. Ext: No clubbing, cyanosis, or edema. 2+ DP pulses bilaterally. Neuro: Patient is alert and oriented x4. Cranial nerves 2-12 are intact. Speech is clear. Psych: Normal mood and affect. Patient is pleasant and cooperative. Skin: Warm and dry. No rashes noted. DS: Data Data Completed and Pending Completed studies during hospitalization: Renal US Abdomen/pelvis CT Labs on day of discharge: Labs from last 24 hours 07/16/23 07/16/23 07/16/23 11:51 08:1
[2023-07-16 14:00] VITALS: BP 122/49; PULSE 77; RESP 16; TEMP 36.5; O2SAT 97
[2023-07-16 14:19] LABS: Chloride Rand Ur 34 mmol/L (32-290); Chloride/Creatinine Rand Ur 76 (38-318); Creatinine Random Urine 45 mg/dL (20-275)
[2023-07-17 05:59] LABS: Protein, Total 5.6 g/dL (6.1-8.1)
[2023-07-17 14:27] LABS: Creatinine, Random Urine 50 mg/dL (20-275); Total Protein/Creatinine Ratio 420 mg/g creat (24-184)
[2023-07-18 11:03] LABS: Osmolality, Urine 315 mOsm/kg (50-1200)
[2023-07-19 11:18] LABS: Kappa\\Lambda Light Chains 1.89 (0.26-1.65); Lambda Light Chain 42.1 mg/L (5.7-26.3)
[2023-07-19 11:29] LABS: Anti Glomerular Basement Memb <1.0 AI
[2023-07-20 09:28] LABS: Albumin 2.7 g/dL (3.8-4.8); Alpha 1 Globulin 0.4 g/dL (0.2-0.3); Alpha 2 Globulin 0.9 g/dL (0.5-0.9); Beta 1 Globulin 0.4 g/dL (0.4-0.6); Gamma Globulin 0.8 g/dL (0.8-1.7)
[2023-07-20 11:14] LABS: Anti Nuclear Antibody Pattern Cytoplasmic
[2023-07-20 11:18] LABS: ANCA Screen NEGATIVE (NEGATIVE)
[2023-08-10 14:06] LABS: ANA Additional Testing Added
== END 2023-07-16 15:00 | disposition home or self-care (01) | DRG 683 ==
LOC: ANHED 11:53 → ANH3MEDSUR 14:38
PROVIDERS: Internal Medicine Nephrology; Nurse Practitioner Acute Care; Physician Assistant; Student in an Organized Health Care Education/Training Program; Admitting Provider General Practice; Emergency Provider Student in an Organized Health Care Education/Training Program; PCP Family Medicine Adolescent Medicine; Visit Provider Internal Medicine
DX: N17.9 Acute kidney failure, unspecified (principal); E87.20 Acidosis, unspecified; I25.10 Atherosclerotic heart disease of native coronary artery without angina pectoris; I70.0 Atherosclerosis of aorta; I12.9 Hypertensive chronic kidney disease with stage 1 through stage 4 chronic kidney disease, or unspecified chronic kidney disease; N18.9 Chronic kidney disease, unspecified; E11.319 Type 2 diabetes mellitus with unspecified diabetic retinopathy without macular edema; E11.21 Type 2 diabetes mellitus with diabetic nephropathy; E11.51 Type 2 diabetes mellitus with diabetic peripheral angiopathy without gangrene; E86.0 Dehydration; E83.42 Hypomagnesemia; E78.5 Hyperlipidemia, unspecified; D72.829 Elevated white blood cell count, unspecified; K21.9 Gastro-esophageal reflux disease without esophagitis; M19.90 Unspecified osteoarthritis, unspecified site; Z20.822 Contact with and (suspected) exposure to COVID-19; Z79.01 Long term (current) use of anticoagulants; Z79.82 Long term (current) use of aspirin; Z95.1 Presence of aortocoronary bypass graft
CPT/HCPCS: 36415; 74176; 76775; 80048; 80053; 81001; 82436; 82550; 82570; 82803; 82948; 83036; 83520; 83605; 83690; 83735; 83883; 83930; 83935; 84100; 84133; 84155; 84156; 84165; 84166; 84300; 84443; 84484; 84540; 85025; 85027; 85610; 85652; 85730; 85999; 86036; 86038; 86039; 86140; 86160; 86225; 87086; 87636; 93005; 96361; 96365; 96366; 96375; 99285; A9270; G0378; J1815; J3475; J7030

== ENCOUNTER 2023-07-19 12:24 | Outpatient (CLI) | payer MEDICARE, SELFPAY ==
[2023-07-19 12:46] LABS: Hematocrit 30.2 % (37.0-47.0); Hemoglobin 9.6 g/dL (12.0-15.0); Mean Corpuscular HGB Conc 31.8 g/dl (32-36); Mean Corpuscular Hemoglobin 30.7 pg (26-34); Mean Corpuscular Volume 96.5 fl (80-100); Platelet Count Result 334 k/mm3 (150-375); Red Blood Count 3.13 M/mm3 (4.2-5.4); Red Cell Distribution Width 15.1 % (11.5-14.5); White Blood Count 16.3 K/mm3 (4.5-10.0)
[2023-07-19 12:57] LABS: Band Neutrophils Percent 2 % (0-6); Giant Platelets Present; Hypochromasia 1+; Lymphocytes Absolute Manual 6.19 K/mm3 (1.1-4.5); Monocytes Absolute Manual 0.81 K/mm3 (0.1-0.90); Monocytes Percent Manual 5 % (3-9); Neutrophils Absolute Manual 9.29 K/mm3 (1.7-7.2); Neutrophils Percent Manual 55 % (46-73); Platelet Estimate Adequate (Adequate); Schistocytes None Seen; Total Cells Counted 100
[2023-07-19 17:11] LABS: Erythrocyte Sedimentation Rate 97 mm/hr (0-20)
[2023-07-19 17:14] LABS: Alanine Aminotransferase 19 U/L (6-35); Albumin Level 3.7 g/dL (3.5-5.1); Alkaline Phosphatase 82 U/L (38-126); Anion Gap 7 mmol/L (4-12); Aspartate Amino Transferase 22 U/L (14-36); Bilirubin,Total 0.4 mg/dL (0.2-1.3); Blood Urea Nitrogen 40 mg/dL (7-17); CRP 0.6 mg/dL (<1.0); Calcium 9.5 mg/dL (8.4-10.2); Carbon Dioxide 22 mmol/L (22-30); Chloride 112 mmol/L (98-107); Estimated Glomerular Filt Rate 28; Glucose 183 mg/dL (65-110); Sodium 141 mmol/L (137-145)
== END 2023-07-19 12:25 | disposition home or self-care (01) ==
LOC: ANHLAB 12:26
PROVIDERS: Internal Medicine Hematology & Oncology; PCP Family Medicine Adolescent Medicine; Visit Provider Student in an Organized Health Care Education/Training Program
DX: D72.829 Elevated white blood cell count, unspecified (principal); N17.9 Acute kidney failure, unspecified; N18.9 Chronic kidney disease, unspecified
CPT/HCPCS: 36415; 80053; 85025; 85652; 86140

== ENCOUNTER 2024-01-07 11:40 | Outpatient (CLI) | payer MEDICARE, SELFPAY ==
[2024-01-07 12:03] LABS: Basophils Absolute Auto 0.1 K/mm3 (0.0-0.1); Basophils Percent Auto 0.4 % (0.2-1.2); Eosinophils Absolute Auto 0.3 K/mm3 (0-0.3); Eosinophils Percent Auto 2.6 % (0-4.4); Hematocrit 32.5 % (37.0-47.0); Hemoglobin 10.5 g/dL (12.0-15.0); Immature Granulocyte Absolute 0.03 K/mm3 (0.00-0.031); Immature Granulocyte Percent A 0.2 % (0-0.5); Lymphocytes Absolute Auto 5.16 K/mm3 (0.9-3.2); Lymphocytes Percent Auto 40.5 % (18.3-44.2); Mean Corpuscular HGB Conc 32.3 g/dl (32-36); Mean Corpuscular Hemoglobin 31.3 pg (26-34); Mean Corpuscular Volume 96.7 fl (80-100); Monocytes Absolute Auto 0.8 K/mm3 (0.1-0.6); Monocytes Percent Auto 6.1 % (2.6-8.5); Neutrophils Absolute Auto 6.4 K/mm3 (1.3-6.7); Neutrophils Percent Auto 50.2 % (45.5-73.1); Platelet Count Result 306 k/mm3 (150-375); Red Blood Count 3.36 M/mm3 (4.2-5.4); Red Cell Distribution Width 13.9 % (11.5-14.5); White Blood Count 12.7 K/mm3 (4.5-10.0)
[2024-01-07 13:38] LABS: Iron 115 ug/dL (37-170)
[2024-01-07 13:39] LABS: Anion Gap 7 mmol/L (4-12); Blood Urea Nitrogen 45 mg/dL (7-17); Calcium 9.8 mg/dL (8.4-10.2); Carbon Dioxide 30 mmol/L (22-30); Chloride 102 mmol/L (98-107); Estimated Glomerular Filt Rate 32; Glucose 213 mg/dL (65-110); Potassium 5.2 mmol/L (3.4-5.0); Sodium 139 mmol/L (137-145)
[2024-01-07 13:48] LABS: Albumin Level 4.1 g/dL (3.5-5.1); Anion Gap 6 mmol/L (4-12); Blood Urea Nitrogen 45 mg/dL (7-17); Calcium 9.8 mg/dL (8.4-10.2); Carbon Dioxide 30 mmol/L (22-30); Chloride 102 mmol/L (98-107); Estimated Glomerular Filt Rate 34; Glucose 211 mg/dL (65-110); Percent Iron Saturation 29 % (20-50); Phosphorus 3.4 mg/dL (2.5-4.5); Potassium 5.3 mmol/L (3.4-5.0); Sodium 138 mmol/L (137-145)
[2024-01-07 13:56] LABS: Vitamin D 25 Hydroxy 35.7 ng/mL
[2024-01-07 13:59] LABS: Parathyroid Intact 48.8 pg/mL (14.5-75.2)
[2024-01-07 15:10] LABS: Total Protein Urine Random 37 mg/dL
[2024-01-07 15:35] LABS: Creatinine Urine 127.7 mg/dL; Ur Ttl Prot Creatinine Ratio 0.29 mg/mg (0-0.20)
== END 2024-01-07 11:41 | disposition home or self-care (01) ==
LOC: ANHLAB 11:41
PROVIDERS: Internal Medicine Nephrology; PCP Family Medicine Adolescent Medicine; Visit Provider Internal Medicine Hematology & Oncology
DX: E11.22 Type 2 diabetes mellitus with diabetic chronic kidney disease (principal); I12.9 Hypertensive chronic kidney disease with stage 1 through stage 4 chronic kidney disease, or unspecified chronic kidney disease; N18.4 Chronic kidney disease, stage 4 (severe); E55.9 Vitamin D deficiency, unspecified; N25.81 Secondary hyperparathyroidism of renal origin; D63.8 Anemia in other chronic diseases classified elsewhere; D72.829 Elevated white blood cell count, unspecified
CPT/HCPCS: 36415; 80048; 80069; 82306; 82570; 82728; 83540; 83550; 83970; 84156; 85025

== ENCOUNTER 2024-03-09 09:14 | Outpatient (CLI) | payer MEDICARE, SELFPAY ==
--- NOTE | ~2024-03-09 | DEXA_ITS ---
Bone Density Report Name: ASYA RODGERS Age: 73 Sex: Female Ethnicity: White Date of : 1950 Indication: postmenopausal; screening for osteoporosis; height loss; Referring Provider: LIA, LAUREN Study: Bone densitometry was performed. Exam Date: March 09, 2024 Accession number: [id number] Bone Density: Region BMD T-score Z-score Classification AP Spine(L1-L4) 1.053 0.1 2.4 Normal Femoral Neck (Left) 0.634 -1.9 0.1 Osteopenia Total Hip (Left) 0.869 -0.6 1.1 Normal Femoral Neck (Right) 0.632 -2.0 0.0 Osteopenia Total Hip (Right) 0.967 0.2 1.9 Normal Total Hip Mean 0.918 -0.2 1.5 Normal World Health Organization criteria for BMD impression classify patients as: Normal (T-score at or above -1.0), Osteopenia (T-score between -1.0 and -2.5), or Osteoporosis (T-score at or below -2.5). 10-year Fracture Risk(1): Major Osteoporotic Fracture 11% Hip Fracture 2.3% Reported Risk Factors: [place] (), Neck BMD=0.634, BMI=37.2 (1) FRAX(R) Version 3.08. Fracture probability calculated for an untreated patient. Fracture probability may be lower if the patient has received treatment. Clinical Information Provided by Patient: Has used the following medications: Vitamin D, Calcium Patient maximum height was 63 Menopause Age: 50 Onset of menses at age 14 Number of children 2 Impression: The patient has low bone mass, based on the Right Femoral Neck T-score. The patient has an estimated ten-year risk of hip fracture of 2.3% and an estimated ten-year risk of major fracture of 11%, based on the WHO FRAX algorithm. Discussion: BONE DENSITY IS LOW AT ONE OR MORE SKELETAL SITES. This patient's lowest T-score is low at one or more skeletal sites. It meets the World Health Organization's (WHO) criteria for ?low bone mass? (T-score between -1.0 and -2.5). The patient's 10-year risk of fracture as calculated by FRAX is less than the threshold where pharmacological therapy is recommended by the National Osteoporosis Foundation (NOF). However, all treatment decisions require clinical judgment and consideration of individual patient factors, including patient preferences, comorbidities, previous drug use, risk factors not captured in the FRAX model (e.g., frailty, falls, vitamin D deficiency, increased bone turnover, interval significant decline in bone density) and possible under or overestimation of fracture risk by FRAX. The patient should follow a healthful lifestyle (good nutrition with adequate calcium and vitamin D, and appropriate weight-bearing exercise). Follow-Up: Consider repeating this study in 2 to 3 years to reassess this patient's status, or sooner if there is some new clinical indication. Reported by: MARI on 03/09/2024 10:06:00 AM. Reviewed, dictated and finalized at location [facility]
--- OUTSIDE RECORDS SUMMARY | 2024-03-10 04:02 | XMS_ITS | Data Portability ---
Author Organization [facility] OFFICE Address [address] [place] [id number] Care Team Providers Care Principal Scientist Name Role Phone PILLO ONEIL Primary Care Provider Assessment No assessment recorded. Plan of Treatment Reminders Order Date Submit Date Provider Last Modified By Organization Details Last Modified Time Details Appointments None record ed. Lab None record ed. Referral None record ed. Procedures None record ed. Surgeries None record ed. Imaging None record ed. Medication Orders None record ed. Patient TargetsNo targets recorded. Patient InstructionsNo instructions recorded. Reason for Referral None Reported. Results Created Date Observation Date Name Description Value Unit Range Abnormal Flag Note LastModifiedBy Organization Detail LastModifiedTime 08/15/19 21 07/17/2020 , echoc ardio gram No observ ation record ed. [email or web address] Not Available 08/14 15:58:20 10/09/19 21 10/03/2020 , echoc ardio gram No observ ation record ed. est [facility] [address] [place], [place], [address], 10/09/2020 08:57:31 Result Notes None recorded. Problems Name Problem SNOMED Code Status Onset Date Resolution Date Notes Provider Name and Address Organization Details Recorded Time Acute coronary syndrome 623512316 Active 2020 Keysha jaimes, [facility] 11:24:29 Acute non-ST segment elevation myocardial infarction 187870557 Active 2020 Keysha jaimes, [place] - [facility] 11:25:13 Coronary arterioscleros is 81315068 Active 2020 Keysha jaimes, [facility] 12:37:19 Diabetes mellitus 00184002 Active 2020 Keysha Castrejon [place], [place] - [facility] 12:37:38 Hypercholester olemia 44714762 Active 2020 Keys[place]re[place] [facility] 12:37:49 Atrial fibrillation 97105372 Active 2020 Keysha jaimes, [place] - [facility] 12:14:43 Coronary artery bypass grafts x 3 Active 2020 Keysha Castre[place] [facility] 12:20:18 Obesity 293334805 Active 2020 Tonyjf Vargas [place] [facility] 12:10:19 Benign essential hypertension 8155100 Active 2020 [place] [facility] 12:10:49 Peripheral vascular disease 651995347 Active 2020 [place] [facility] 12:13:12 Deep venous thrombosis 178451168 Active 2020 [place] [facility] 12:25:01 Notes:Calcific blood flow to abdomiminal vasculature Problem Notes None recorded. Procedures Surgical History Date Name Laterality Status Provider Name and Address Organization Details Recorded Time Unlisted px vascular surgery completed Tony Mesto [place] - [facility] 09/06/2020 12:08:19 Cholecystectomy completed Tony Mesto [place] - [facility] 09/06/2020 12:25:16 Imaging Results Imaging Date Name Status LastModified by Organization Details LastModified Time 07/17/2020 US, echocardiogram completed [email or web address] Inform ation not available 08/14/2020 15:58:20 10/03/2020 , [facility] [address], [place], [address], 10/09/2020 08:57:31 Procedure Notes None recorded. Medical Equipment None Reported. Allergies Allergen ID Allergen Name Allergen Category Reaction Reaction Severity Criticality Documentation Date Start Date Code Code System Note Provider Name and Address Organization Details Recorded Time 46817 codeine medicatio n Not available Not available Not available 08/26/2020 2670 RxNorm Keysha Castrejon [facility] 1 12:40:08 70296 Product containin g 3-hydroxy -3-methyl glutaryl- coenzyme A reductase inhibitor (product) medicatio n Not available Not available Not available 08/26/2020 54335 009 SNOMED Keysha Castrejon [facility] 1 12:40:18 Medications Name Sig Start Date Stop Date Status Note LastModified by Organization Details LastModified Time metformin 500 mg tablet Take 1 tablet twice a day by oral route. active Not Available Not Available No t Available Toprol XL 25 mg tablet,extende d release Take 1 tablet every day by oral route. active Not Available Not Available No t Available atorvastatin 10 mg tablet Take 1 tablet every day by oral route. active Not Available Not Available No t Available amiodarone 200 mg tablet Take 1 tablet every day by oral route. active Not Available Not Available No t Available glimepiride 2 mg tablet TAKE 1 TABLET BY MOUTH EVERY DAY active Not Available Not Available No t Available warfarin 5 mg tablet active Not Available Not Available Not Available metformin ER 500 mg tablet,extende d release 24 hr TAKE 4 TABLETS BY MOUTH DAILY active Not Available Not Available No t Available BD Ultra-Fine Mini Pen Needle 31 gauge x 3/16 USE DIRECTED ONCE A DAY. active Not Available Not Available No t Available diclofenac 1 % topical gel APPLY 1/4 INCH TO AREA ON LEG 3 4 TIMES DAILY active Not Available Not Available No t Available Accu-Chek SmartView Test Strips USE DIRECTED TO TEST BLOOD SUGAR ONCE DAILY, E11.65 active Not Available Not Available No t Available Basaglar BernabePen U-100 Insulin 100 unit/mL (3 mL) subcutaneous INJECT 15 UNITS UNDER THE SKIN NIGHTLY. active Not Available Not Available No t Available Adult Aspirin Regimen 81 mg tablet,delayed release Take 1 tablet every day by oral route. active Not Available Not Available No t Available Vitals Date Recorded Body height Body mass index (BMI) Body weight Heart rate Respiratory rate Oxygen saturation Oxygen saturation in Arterial blood by Pulse oximetry Systolic blood pressure Diastolic blood pressure Provider Name and Address Organization Details Last Updated DateTime 1 152.4 cm 38.3 kg/m2 72693.1 g 78 /min 16 /min 96 % 96 % 104 mm[Hg] 62 mm[Hg] Mitzi Lemus [employer] [facility] 14:58:18 Social History Question Answer Notes LastModified by Organizat ion Details LastModified Time Tobacco Smoking Status Never Smoker Cecily Vargas theodore, [facility] 09/06/2020 12:09:55 What Is Your Level Of Alcohol Consumption? None Information not available 09/06/2020 Do You Use Any Illicit Or Recreational Drugs? No Information not available 09/06/2020 Do You Or Have You Ever Used Any Other Forms Of Tobacco Or Nicotine? No Information not available 09/06/2020 Sex: Unknown Functional Status None recorded. Mental Status None recorded. Family History Relationship Description Onset Age of this Age Resolved Age Notes LastModified by Organization Details LastModified Time Mother No current problems or disability [email or web address] Not available 08/15 12:40:26 Father Heart disease [email or web address] Not available 2020 12:08:58 Medical History Condition Response Coronary Artery Disease Y High Cholesterol Y Diabetes Y Myocardial Infarction Y Hypertension Y Gynecological HistoryNo gynecological history recorded. Obstetrics History GPAL:G 0 P 0 0 0 0 Past Encounters Encounter ID Performer Location Encounter Start Date Encounter Closed Date Diagnosis/Indication Diagnosis SNOMED-CT Code Diagnosis ICD10 Code Diagnosis Note [id number] Aleksandr John MD [place] [facility] [address] [place] [id number] 09/09/2020 14:47:46 09/09/2020 15:10:17 Coronary arteriosclerosis 65527119 I25.10 status post coronary bypass surgery, seems to be stable now no active chest pain, will arrange for outpatient cardiac rehab Acute non- ST segment elevation myocardial infarction 875030425 I21.4 with three-vess el coronary disease, status post coronary bypass surgery Atrial fibrillation 4943 6004 I48.91 seems to be in sinus rhythm now, will continue with Coumadin, INR is monitored by her primary care physician Essential hypertension 02735763 I10 fairly well controlled now Hyperlipidemia 34797182 E78.5 Needs to keep LDL less than 70, and HDL more than 40. Health Concerns Section Related Observation LastModified by Organization Detai ls LastModified Time None Recorded Concern Status LastModified by Organization Details LastModified Time None Recorded Advance Directives Directive None Recorded Payers Encounter Date Sequence Insurance Name Policy Number Policy Ugalde Covered Member ID Ugalde Member ID Guarantor Name 09/09/2020 1 [place] Sue Smallwood [id number] Sue Smallwood 09/09/2020 2 [employer] SU[employer]LEMENTAL - [place] [employer] (MEDICARE SUPPLEMENT) Sue Smallwood [id number] Sue Smallwood Notes Date Note Type Note Provider Name and Address Organization Details Recorded Time 1 text/html 09/09/20CC : Shortness of breath and Chest pain69 years-old Female with h/o Hypertension, Diabetes mellitus , Hypercholestrolemia , Coronary artery disease, and Non-ST elevation myocardial infarction is here for follow up. she had coronary bypass surgery, did okay postoperatively and had good recovery course, currently she feels fatigued with mild shortness breath with exertion Denies chest pain. Denies shortness of breath at rest. No orthopnea. No PNDs. Denies heart palpitations. Denies dizziness. Denies syncope or near syncope. No ankle or leg edema. No major bleeding events. No reported side effects from medications. Taking medications as prescribed with no missed doses. *Had Cardiac CATH revealed 3-Vessel coronary artery disease with grossly preserved ventricular and valvular function, she was then transferred to [facility] and underwent coronary bypass surgery *Had ECHO done in 07/17/20 showed normal LV systolic function, EF 60-65% , Right ventricular chamber dimension is mildly enlarged. Aortic valve is mildly calcified with no restricted motion. There is no aortic stenosis. There is no mitral valve regurgitation. There is trace tricuspid valve regurgitation. Ascending aorta appears mildly calcified. Aleksandr John MD [address] [place], [address], [place] [facility] 09/09/2020 17:26:18 OBGyn Episode No OBEpisode recorded.
== END 2024-03-09 09:15 | disposition home or self-care (01) ==
PROVIDERS: PCP Family Medicine Adolescent Medicine; Visit Provider Nurse Practitioner
DX: M85.88 Other specified disorders of bone density and structure, other site (principal); Z78.0 Asymptomatic menopausal state; M85.852 Other specified disorders of bone density and structure, left thigh; M85.851 Other specified disorders of bone density and structure, right thigh
CPT/HCPCS: 77080

== ENCOUNTER 2024-04-18 14:32 | Outpatient (CLI) | payer MEDICARE, SELFPAY | END 2024-04-18 14:33 | disposition home or self-care (01) | PROVIDERS: PCP Family Medicine Adolescent Medicine; Visit Provider Nurse Practitioner | DX: Z12.31 Encounter for screening mammogram for malignant neoplasm of breast (principal) | CPT/HCPCS: 77063; 77067 ==

== ENCOUNTER 2024-09-18 13:24 | Outpatient (CLI) | payer MEDICARE, SELFPAY ==
--- OUTSIDE RECORDS SUMMARY | 2024-09-18 13:37 | XMS_ITS | Clinical Summary ---
Author Organization [facility] Address [address] [place] [address] Care Team Providers Care Electrotype Servicer Name Role Phone Teddy Walker MD Primary Care Prov ider Teddy Walker MD Unavailable + Allergies Active Allergy Reactions Criticality Noted Date Comments Codeine Stomach upset Low 07/19/2020 Gjxkkcb-Ept-Ojr Reductase Inhibitors Headache Low 07/19/2020 Tissue Adhesive Itching Low 08/02/2020 Pt with significant itching, blisters to dermabond Medications aspirin 81 mg enteric coated tablet Take 2 tablets (162 mg total) by mouth daily Active calcium carbonate (OS-RUDDY) 1,500 mg (600 mg of elemental calcium) tablet Take 1 tablet (1,500 mg total) by mouth 2 (two) times a day Active cholecalciferol (VITAMIN D-3) 25 mcg (1,000 unit) tablet Take 1 tablet (1,000 Units total) by mouth 2 (two) times a day Active cyanocobalamin (Vitamin B-12) 1,000 mcg tabletIndications: Prevention of Vitamin B12 Deficiency Take 1 tablet (1,000 mcg total) by mouth daily Active latanoprost (XALATAN) 0.005 % ophthalmic solution Administer 1 drop into both eyes nightly Active metFORMIN (GLUCOPHAGE) 500 mg tablet Take 2 tablets (1,000 mg total) by mouth 2 (two) times a day with meals Active omeprazole (PriLOSEC) 20 mg capsule Take 1 capsule (20 mg total) by mouth 2 (two) times a day Active polysaccharide iron complex (NU-IRON) 150 mg iron capsuleIndications :Iron Deficiency Anemia,for HCT <30 Take 1 capsule (150 mg total) by mouth 2 (two) times a day with meals 60 capsule 1 07/31/19 21 Active folic acid (FOLVITE) 1 mg tablet Take 1 tablet (1 mg total) by mouth daily 30 tablet 08/11/19 21 Active metoprolol XL (TOPROL-XL) 25 mg extended release tablet Take 3 tablets (75 mg total) by mouth daily 90 tablet 08/11/19 21 Active acetaminophen (TYLENOL) 325 mg tabletIndications: Fever,Pain Take 2 tablets (650 mg total) by mouth every 4 (four) hours as needed for pain or headaches 30 tablet 08/10/19 21 Active Additional Information Patient not taking.Reported on 05/23/2024 insulin glargine (LANTUS, BASAGLAR, SEMGLEE) 100 unit/mL (3 mL) pen for injection Inject 15 Units under the skin nightly May substitute with insulin detemir if glargine not covered. 4.5 mL 08/10/19 21 Active Additional Information Patient taking differently:15 Units subcutaneousAs needed, May substitute with insulin detemir if glargine not covered., Reported on 05/23/2024 pen needle, diabetic (Pen Needle) 32 gauge x 5/32 needle Use as directed once a day. 100 each 08/10/19 21 Active atorvastatin (LIPITOR) 40 mg tabletIndications: ASCVD (arteriosclerotic cardiovascular disease),Hyperlipi demia associated with type 2 diabetes mellitus (HCC) Take 1 tablet (40 mg total) by mouth daily 90 tablet 3 07/09/19 22 Active glimepiride (AMARYL) 2 mg tablet Take 0.5 tablets (1 mg total) by mouth daily 10/23/19 22 Active furosemide (LASIX) 20 mg tablet Take 1 tablet (20 mg total) by mouth every morning 09/11/19 22 Active magnesium oxide (MAG-OX) 400 mg (241.3 mg elemental magnesium) tablet Take 1 tablet (400 mg total) by mouth daily Active benzonatate (TESSALON) 200 mg capsule TAKE 1 CAPSULE BY MOUTH THREE TIMES A DAY NEEDED FOR COUGH 05/11/[address] (VOLTAREN) 75 mg EC tablet Take 1 tablet (75 mg total) by mouth 2 (two) times a day 04/25/19 25 Active lisinopriL (PRINIVIL,ZESTRIL) 20 mg tablet Take 1 tablet (20 mg total) by mouth daily 03/01/19 25 Active warfarin (COUMADIN) 2 mg tablet Take by mouth 04/26/19 25 Active Active Problems Problem Noted Date Diagnosed Date Nonrheumatic aortic valve stenosis 08/27/2023 Morbid (severe) obesity due to excess calories 0 08/27/2023 Leukocytosis 08/05/2020 Assessment & Plan (08/09/2020 10:39 AM CDT): Elevated WBC since surgery. Etiology unclear - pt currently with contact dermatitis believed related to dermabond - giving few days of prednisone (likley will increase WBC). Otherwise is asymptomatic - no fever, cough, sob, diarrhea. Surgical wound healing. F/U as outpt A-fib 07/31/2020 Assessment & Plan (08/09/2020 10:27 AM CDT): Developed post-op. HR currently controlled, continue amiodarone 200 mg daily, metoprolol XL 75 mg. Continue asa. Presence of aortocoronary bypass graft Assessment & Plan (08/09/2020 10:41 AM CDT): s/p CABG X4 (CARDENAS to LAD, SVG to D1, SVG to distal LCx, SVG to RPL) on 07/22/[address] De Jesus. Brief post op A fib. Started on amiodarone, metoprolol, converted to sinus rhythm . Amiodarone dose decreased to 200 mg daily (due to SE dizziness). Need to refrain from driving or heavy lifting. Follow up with Dr. De Jesus in 1 week after discharge 08/02: patient is participating well in therapy, pain generally controlled. Pt having reaction to dermabond - added to allergy list. Offered antihisamine which was declined. Continue eucerin. If worsens will need topical steroid. Continue asa, statin, BP control 08/05: added topical and oral steroid. Otherwise making good progress in therapy. Continue asa, statin, BP control 08/06: adding rash treatment as above, continue BP control. Anticipating dc next week 08/09: Planning discharge 08/12 to home with home health PT, RN. F/u with CTS, PCP, cardiology Hx of CABG 07/30/2020 ASCVD (arteriosclerotic cardiovascular disease) 07/19/2020 Assessment & Plan (07/21/2020 12:50 PM CDT): She has three-vessel coronary disease with left main disease, and recent non ST elevation myocardial function at [facility], she is planned for coronary bypass surgery possibly tomorrow DVT prophylaxis 07/19/2020 Diabetes mellitus 07/19/2020 Assessment & Plan (08/09/2020 10:31 AM CDT): A1C 9.2 on 07/19/20. Accuchecks now low, will DC mealtime insulin, reduce Lantus to 15units. Continue metformin 1000 mg b.i.d.. Pt agreeable to using Lantus pen at home - has used in the past. Recommend check blood sugars TID until reviewed by PCP. Amaryl DC'd Assessment & Plan (07/20/2020 3:05 PM CDT): Better readings now, follow-up and treatment per Hospital Hyperlipidemia associated with type 2 diabetes juvenal newell 07/19/2020 Assessment & Plan (07/31/2020 11:55 AM CDT): Continue atorvastatin 10 mg daily. Assessment & Plan (07/20/2020 3:05 PM CDT): Continue with lipid Hypertension associated with diabetes 07/19/2020 Assessment & Plan (08/09/2020 10:39 AM CDT): Blood pressure well controlled. Continue metoprolol XL 75 mg. Lisinopril was held 2/2 worsened Cr and hyperkalemia. Will restart lisinopril at discharge - rec f/u labs 08/15. Assessment & Plan (07/20/2020 3:05 PM CDT): Blood pressure well controlled now, continue with lisinopril, start on low-dose metoprolol PVD (peripheral vascular disease) 07/19/2020 Assessment & Plan (08/09/2020 10:40 AM CDT): With mesenteric disease and peripheral vascular disease. On Coumadin Assessment & Plan (07/20/2020 3:06 PM CDT): With mesenteric disease and peripheral vascular disease, she would need treatment later on after she gets treatment for coronary bypass surgery Mesenteric artery stenosis 07/19/2020 Assessment & Plan (08/09/2020 10:40 AM CDT): INR pending - likely will discharge on 3mg. F/U PT/INR 08/15 Resolved Problems Problem Noted Date Diagnosed Date Resolved Date Contact dermatitis 08/05/2020 Assessment & Plan (08/09/2020 10:29 AM CDT): On sternum, upper abd drain sites, miguelito leg graft sites - all where dermabond was used. Rash better after steroid burst, 5 days of zyrtec/pepcid, continue topical triamcinolone BID. Dermabond added to allergy list Morbid obesity with BMI of 40.0-44.9, adult 07/19/2020 08/27/2023 Assessment & Plan (07/31/2020 12:15 PM CDT): Encourage diet and lifestyle modification Surgical History Surgery Date Site/Laterality Comments CORONARY ARTERY BYPASS GRAFT VASCULAR SURGERY CHOLECYSTECTOMY ARTHROSCOPIC SURGERY Right knee Medical History Medical History Date Comments Coronary artery disease Diabetes mellitus (HCC) History of transfusion Hypertension PVD (peripheral vascular disease) HLD (hyperlipidemia) Social History Tobacco Use Types Packs/Day Years Used Date Smoking Tobacco: Never Smokeless Tobacco: Never Tobacco Cessation:Counseling Given: Not Answered AUDIT-C Answer Date Recorded Q1: How often do you have a drink containing alc ohol? Monthly or less 07/30/2020 Average Number of Drinks Not on file 021 Frequency of Binge Drinking Not on file 07/16 Comments No Sex and Gender Information Value Date Recorded Sex Assigned at Not on file Legal Sex Female 12:35 PM [employer] Gender Identity Not on file Sexual Orientation Not on file Obstetrics History Last Filed Vital Signs Vital Sign Reading Time Taken Comments Blood Pressure 168/78 05/23/2024 8:35 AM CDT Pulse 81 05/23/2024 8:35 AM CDT Temperature 37.1 C (98.7 F) 08/12/2020 7:17 AM CDT Respiratory Rate 20 08/12/2020 7:17 AM CDT Oxygen Saturation 96% 05/23/2024 8:35 AM CDT Inhaled Oxygen Concentration - - Weight 87.1 kg (192 lb) 05/23/2024 8:35 AM CDT Height 152.4 cm (5') 05/23/2024 8:35 AM CDT Body Mass Index 37.5 05/23/2024 8:35 AM CDT Plan of Treatment Health Maintenance Due Date Last Done Comments Albumin Creatinine Ratio, Urine 1950 Breast Cancer Screening-Mammogram 1950 Colon Cancer Screening-Colonoscopy 1950 Depression Screening 1950 Hepatitis C Screening 1950 Osteoporosis Screening-Bone Density Scan 1950 Dilated Eye Exam 1950 Foot Exam 1950 Hepatitis B Screening 1968 Pneumococcal vaccine 65+ (1 of 2 - PCV) 1969 Well Visit 65+ 11/07/2015 Zoster Vaccine (2 of 3) 10/02/2016 08/07/2016 Hemoglobin A1C 01/18/2021 07/19/2020 Fall Risk Assessment 07/30/2021 07/30/2020 eGFR 08/12/2021 08/12/2020, 07/17, 08/08/2020, Additional history exists Covid-19 Vaccine (3 - 2023-2 5 season) 2023 05/11/2020, 04/18/2020 Influenza Vaccine (#1) 2024 7, 12/18/2014, 12/14/2012 Lipid Panel 05/23/2025 05/23/2024, 08/15, 03/12/2023, Additional history exists DTaP/Tdap/Td Vaccine (2 - Td or Tdap) 05/08/2026 05/08/2016 Medical Devices Implanted Type Area Rib Bender Device Identifier Shelf Expiration Date Model / Serial / Lot [employer] 040-169 Wire Suture [employer] [id number] 2 X 18in 49mm Half [place] - [id number] Implanted:Qty: 1 on 07/22/2020 by Davy De Jesus MD at [facility] [employer] [id number] Description:USED TO CLOSE ST ERNUM Procedures Procedure Name Priority Date/Time Associated Diagnosis Comments POCT LIPID PANEL Routine 05/23/2024 8:42 AM CDT Lipid screening EGFR Routine 08/12/2020 6:55 AM CDT HEMOGLOBIN A1C Routine 07/19/2020 7:56 AM CDT from Last 3 Months or Most Recently Relevant to Health Maintenance Results * POCT lipid panel (05/23/2024 8:42 AM CDT) Cholesterol, POC 127 mg/dL HDL, POC 37 mg/dL Triglycerides, POC 239 mg/dL LDL Cholesterol POC 43 mg/dL Chol/HDL Ratio, POC 1.2 Non-HDL Cholesterol, POC 91 mg/dL Cholesterol Total, POC 127 mg/dL Capillary blood 05/23/2024 8 :42 AM CDT us Maryam Lopez NP POINT OF CARE TEST ORDERA BLES Final Result * eGFR (08/12/2020 6:55 AM CDT) eGFR 57 mL/min/1.7 3 m2 [facility] Comment: Interpretive Data Reference Interval Normal >/= 90 mL/min/1.73m2 Mildly decreased* 60 - 89 mL/min/1.73m2 Mildly to moderately decreased 45 - 59 mL/min/1.73m2 Moderately to severely decreased 30 - 44 mL/min/1.73m2 Severely decreased 15 - 29 mL/min/1.73m2 Kidney Failure < 15 mL/min/1.73m2 *Relative to young adult level Estimated glomerular filtration rate is determined by the CKD-EPI equation recommended by the National Kidney Foundation (KDIGO 2012 Clinical Practice Guideline for the Evaluation and Management of Chronic Kidney Disease. Kidney Intnl Suppl Feb 2012;3:1). The CKD-EPI equation should not be used for patients with unstable renal function and has not been validated in children and those over 70. Current interpretive data was last reviewed 2020 Blood specimen (specimen) 08/12/2020 6:55 AM CDT 08/12/2020 8:51 AM CDT us Martha MINOR LAB BLOOD ORDERABLES Final Resu lt Performing Organization Address City/[facility]/ZIP Co de Phone Number [address] Department [place] [employer] [place] [address] * (ABNORMAL) Hemoglobin A1c (07/19/2020 7:56 AM CDT) Hemoglobin A1c % 9.2(H) 4.0 - 5.6 % [facility] Comment: ADA 2016 GUIDELINES: Initial Diagnostic Criteria HbA1c Result: Interpretation: <5.7% Normal 5.7-6.4% At risk for diabetes mellitus >=6.5% Consistent with diabetes mellitus Diabetes monitoring Target value (ADA Recommended) <7% 07/19/2020 7:56 AM CDT 07/19/2020 8:16 AM CDT Narrative Resulting Agency Comment IN us Abdirizak Caballero MD LAB BLOOD ORDERABLES Final Result Performing Organization Address City/[facility]/ZIP Co de Phone Number [address] [phone] from Last 3 Months or Most Recently Relevant to Health Maintenance Insurance MEDICARE CIG MEDICARE SUPPLEMENT INSURANCE MEDICARE MEDICARE MEDICARE [facility] Address: [id number] [place] [address] [facility] Address: [facility] [address] [place] [address] MEDICARE CIG MEDICARE SUPPLEMENT INSURANCE Advance Directives For more information, please contact: [phone] * Full Code (Latest Code Status on File) Date Activated Date Inactivated Comments 07/30/2020 6:08 PM 08/12/2020 7:18 PM * Full Code Date Activated Date Inactivated Comments 07/22/2020 2:41 PM 07/30/2020 5:16 PM * Full Code Date Activated Date Inactivated Comments 07/20/2020 12:32 AM 07/22/2020 2:41 PM Care Teams Electrotype Servicer Relationship Specialty Start Date End Date Teddy Walker MD [address] [place] [address] PCP - General 07/18/20 Teddy Walker MD [address] [place] [address] Family Medicine 07/18/20
--- OUTSIDE RECORDS SUMMARY | 2024-09-18 13:37 | XMS_ITS | Clinical Summary ---
Author Organization [facility] Maldonado Hawk Address [address] [facility] [place] [address] Care Team Providers Care Cyber Crime Investigator Name Role Phone Teddy Walker MD Primary Care Provider [phone] Allergies Active Allergy Reactions Criticality Noted Date Comments Codeine Other (See Comments),Nausea and Vomiting Low 02/03/2017 Altered mental status Hydrocodone-Acetaminop hen Nausea and Vomiting High 04/11/2021 Doesn't like to take narcotics, makes her feel funny. Jqjfdok-Rji-Nvx Reductase Inhibitors Headache Low 07/19/2020 Medications omeprazole (PriLOSEC) 20 mg Capsule, Delayed Release(E.C.) Take 20 mg by mouth daily. Active metFORMIN (GLUCOPHAGE) 1,000 mg tablet Take 1,000 mg by mouth 2 times daily with meals. Active lisinopriL (PRINIVIL) 20 mg tablet Take 20 mg by mouth daily. Active metoprolol succinate (TOPROL XL) 25 mg Extended Release 24 hour tablet Take 25 mg by mouth daily. Active insulin glargine (Basaglar KwikPen U-100 Insulin) 100 unit/mL pen syringe Inject 15 Units by subcutaneous injection. Active warfarin sodium (WARFARIN ORAL) Take by mouth. Active atorvastatin (LIPITOR) 40 mg tablet Take 40 mg by mouth daily. Active aspirin (ECOTRIN EC) 81 mg Tablet, Delayed Release (E.C.) Take 81 mg by mouth daily. Active folic acid (FOLVITE) 1 mg tablet Take by mouth daily. Active CYANOCOBALAMIN, VITAMIN B-12, ORAL Take 1,000 mcg by mouth. Active magnesium oxide (MAG-OX) 400 mg (241.3 mg magnesium) tablet TAKE 1 TABLET (400MG) BY MOUTH ONCE DAILY 4 Active Active Problems No known active problems Encounters Date Type Department Care Team Description 08/30/2024 External Device Data ST[facility] ABSTRACTION Provider, Abstract 08/30/2024 External Device Data STL ABSTRACTION Provider, Abstract 08/01/2024 External Device Data ST[facility] ABSTRACTION Provider, Abstract 07/31/2024 Orders Only [facility] Oncology and Hematology - [place] [address] [place] [address] Martinez Cooley MD Leukocytosis, unspecified type 07/17/2024 Orders Only [facility] - [place] [address] [place] [address] Martinez Cooley MD Leukocytosis, unspecified type 07/06/2024 External Device Data ST[facility] ABSTRACTION Provider, Abstract 07/05/2024 External Device Data [facility] ABSTRACTION Provider, Abstract 07/05/2024 External Device Data ST[facility] ABSTRACTION Provider, Abstract 07/03/2024 Orders Only [facility] Hematology - [place] [address] [place] [address] Martinez Cooley MD Leukocytosis, unspecified type 06/19/2024 Orders Only [facility] H[facility]ology - [place] [address] [place] [address] Martinez Cooley MD Leukocytosis, unspecified type from Last 3 Months Family History Medical History Relation Name Comments Heart Disease Father Prostate Cancer Father Throat Cancer Father Lung Cancer Mother Relation Name Status Comments Daughter 1 Alive Daughter 2 Alive Father Mother Social History Tobacco Use Types Packs/Day Years Used Date Smoking Tobacco: Never Smokeless Tobacco: Never Tobacco Cessation:Counseling Given: Not Answered Alcohol Use Standard Drinks/Week Comments Yes 0 (1 standard drink = 0.6 oz pur e alcohol) ocassional Comments Unknown Sex and Gender Information Value Date Recorded Sex Assigned at Not on file Legal Sex Female 9:30 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 Gender Identity Not on file Sexual Orientation Not on file Last Filed Vital Signs Vital Sign Reading Time Taken Comments Blood Pressure 138/77 05/22/2024 11:54 AM CDT Pulse 96 05/22/2024 11:54 AM CDT Temperature 35.9 C (96.6 F) 05/22/2024 11:54 AM CDT Respiratory Rate 15 05/22/2024 11:54 AM CDT Oxygen Saturation 94% 05/22/2024 11:54 AM CDT Inhaled Oxygen Concentration - - Weight 86.8 kg (191 lb 6.4 oz) 05/22/2024 11:54 AM CDT Height 152.4 cm (5') 04/01/2023 3:12 PM DIRECTOR UTILIZATION MANAGEMENT Body Mass Index 37.38 04/01/2023 3:12 PM DIRECTOR UTILIZATION MANAGEMENT Plan of Treatment Upcoming Encounters Date Type Department Care Team (Late st Contact Info) Description 11/20/2024 11:30 AM CDT Office Visit [facility] Oncology and Hematology [facility] [place] [address] [facility] [address] [place] [address] Martinez Cooley MD [address] [facility] [address] [place] [address] Health Maintenance Due Date Last Done Comments DIABETES ANNUAL FOOT EXAM 1968 DIABETES MICROALBUMIN ANNUAL SCREEN 1968 LDL CHOLESTEROL ANNUAL 1968 PNEUMOCOCCAL VACCINE 50+ YEA RS (1 of 2 - PCV) 1969 FIT-DNA Q 3 years 11/07/1995 FIT/FOBT Q 1 year 11/07/1995 Flex Sig/CT Colonography Q 5 years 11/07/1995 ZOSTER VACCINE (1 of 2) 2000 RSV VACCINE (60+ or ) (1 - Risk 60-74 years 1-dose series) 2010 DIABETES HBA1C Q 6 MONTHS 09/10/20232023, 11/20/2022, 09/16/2020, Additional history exists COVID-19 Vaccine (3 - 2023-2 5 season) 2023 05/11/2020, 04/18/2020 INFLUENZA VACCINE (#1) 2024 BREAST CANCER SCREENING 04/18/2025 04/19/19 25, 04/18/2024, 03/29/2023, Additional history exists DIABETES ANNUAL RETINAL EXAM 05/23/202509/2024, 05/23/2024, 06/15/2023, Additional history exists DTAP/TDAP/TD VACCINES (2 - T d or Tdap) 05/08/2026 05/08/2016 COLORECTAL SCREENING 07/23/2026 07/23/2016 Colorectal Cancer Screening 07/23/2026 OSTEOPOROSIS SCREENING 03/09/2029 03/09/2024, 2020 Insurance MEDICARE PART A AND B [facility] Care Teams Cyber Crime Investigator Relationship Specialty Start Date End Date Teddy Walker MD PCP - General Family Practice 03/17/23
--- OUTSIDE RECORDS SUMMARY | 2024-09-18 13:37 | XMS_ITS | Clinical Summary ---
Author Organization [facility] Address [address] [address] Phone Care Team Providers Care Estate Tax Examiner Name Role Phone Teddy Walker MD Primary Care Provider + Fracisco Jarrell DO Unavailable [phone] Immunizations Immunization Administration Dates Next Due Covid-19, Mrna, Lnp-s, Pf, 30 Mcg/0.3 Ml Dose (César patiño) 05/11/2020,04/18/2020 Social History Tobacco Use Types Packs/Day Years Used Date Smoking Tobacco: Never Assessed Comments Unknown Sex and Gender Information Value Date Recorded Sex Assigned at Not on file Legal Sex Female 11:21 PM CDT Gender Identity Not on file Sexual Orientation Not on file Plan of Treatment Health Maintenance Due Date Last Done Comments Hepatitis C Virus (HCV) Screening 1950 TdaP Immunization 1950 Cologuard 11/07/1995 Immunochemical Fecal Occult Blood 11/07/1995 Pneumococcal Immunization (5 0+ years) (1 of 1 - PCV) 2000 Zoster Immunization (1 of 2) 2000 SARS-COV-2 Immunization ( - season) 2023 11/25/2020, 05/11/2020, 04/18/2020 Influenza Immunization (#1) 10/16/202404/2014, 12/14/2012 Respiratory Syncytial Virus (RSV) Immunization (Adult) (1 - 1-dose 75+ series) 2025 Colonoscopy 07/23/2026 07/23/2016 Colorectal Cancer Screening 07/23/2026 Hepatitis B Immunization Aged Out No longer eligible based on patient's age to complete this topic Human Papillomavirus (HPV) Immunization Aged Out No longer eligible b ased on patient's age to complete this topic Meningococcal Immunization (ACWY) Aged Out No longer eligible b ased on patient's age to complete this topic Rotavirus Immunization Aged Out No lo nger eligible based on patient's age to complete this topic Procedures Procedure Name Priority Date/Time Associated Diagnosis Comments COLONOSCOPY Routine 07/23/2016 from Last 3 Months or Most Recently Relevant to Health Maintenance Results * COLONOSCOPY (07/23/2016) us Teddy Walker MD PROCEDURE/MINOR SURGICAL ORDERABLES Final Result from Last 3 Months or Most Recently Relevant to Health Maintenance Insurance MEDICARE [employer] MEDICARE SUP Care Teams Estate Tax Examiner Relationship Specialty Start Date End Date Teddy Walker MD PCP - General Family Medicine 03/13/15 Fracisco Jarrell DO Gastroenterology 03/13/15
--- OUTSIDE RECORDS SUMMARY | 2024-09-18 13:37 | XMS_ITS | Referral Summary ---
Author Organization [facility] Address [address] [place] [address] Care Team Providers Care Pie Baker Name Role Phone Teddy Walker MD Primary Care Prov ider Teddy Walker MD Unavailable + Allergies Active Allergy Reactions Criticality Noted Date Comments Codeine Stomach upset Low 07/19/2020 Ejjrjsz-Vfj-Bkc Reductase Inhibitors Headache Low 07/19/2020 Tissue Adhesive [...] recent non ST elevation myocardial function at [facility], she is planned for coronary bypass surgery [...] PM CDT): Encourage diet and lifestyle modification Social History Tobacco Use Types Packs/Day Years [...] on file 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 Gender Identity Not on file Sexual Orientation [...] 05/23/2024 8:35 AM CDT Plan of Treatment Not on file Medical Devices Implanted Type Area Commodity Loan Clerk Device Identifier Shelf Expiration Date Model / Serial / Lot [employer] [id number] Wire Suture Myowire [id number] 7 [id number] 2 X 18in 49mm Half [place] - [id number] Implanted:Qty: 1 on 07/22/2020 by Davy De Jesus MD at [facility] [employer] [id number] / / Description:USED TO CLOSE ST ERNUM Procedures Procedure [...] Capillary blood 05/23/2024 8 :42 AM CDT Maryam Lopez NP POINT OF CARE TEST [...] 6:55 AM CDT 08/12/2020 8:51 AM CDT Martha MINOR LAB BLOOD ORDERABLES Final Resu lt [facility] [address] [facility] Department of Laboratories [place], [place] [id number] * (ABNORMAL) Hemoglobin A1c (07/19/2020 7:56 AM CDT) Hemoglobin A1c % 9.2(H) 4.0 - 5.6 % [facility] Comment: ADA 2016 GUIDELINES: Initial Diagnostic Criteria HbA1c Result: Interpretation: <5.7% Normal 5.7-6.4% At risk for diabetes mellitus >=6.5% Consistent with diabetes mellitus Diabetes monitoring Target value (ADA Recommended) <7% 07/19/2020 7:56 AM CDT 07/19/2020 8:16 AM CDT Narrative Resulting Agency Comment [place] Abdirizak Caballero MD LAB BLOOD ORDERABLES Final Result Performing Organization Address City/State/[facility] Co de Phone Number [facility] [employer] [place] [address], [facility] [phone] from Last 3 Months or Most Recently Relevant to Health Maintenance Insurance [facility]ICARE [facility] MEDICARE SUPPLEMENT INSURANCE MEDICARE MEDICARE MEDICARE [facility] MEDICARE CIG[employer] MEDICARE SUPPLEMENT INSURANCE Advance Directives For more information, please contact: [phone] * Full Code (Latest Code Status on File) Date Activated Date Inactivated Comments 07/30/2020 6:08 PM 08/12/2020 7:18 PM * Full Code Date Activated Date Inactivated Comments 07/22/2020 2:41 PM 07/30/2020 5:16 PM * Full Code Date Activated Date Inactivated Comments 07/20/2020 12:32 AM 07/22/2020 2:41 PM Care Teams Pie Baker Relationship Specialty Start Date End Date Teddy Walker MD [address] [place] [address] PCP - General 07/18/20 Teddy Walker MD [address] [place] [address] Family Medicine 07/18/20
--- OUTSIDE RECORDS SUMMARY | 2024-09-18 13:37 | XMS_ITS | Clinical Summary ---
Author Organization [facility] Address [address] [place] [address] Care Team Providers Care Grinder Operator Surface Tool Name Role Phone Teddy Walker MD Primary Care Provider + Source Comments [facility]non-owned Affiliates and Associated Physician Practices is amultiple site organization consisting of ambulatory clinics and hospital sitesin [place], [place], [place] and [place]. This disclosure is being madepursuant to the Care Everywhere program and may not contain all information available regarding this patient. Last updated [employer] [facility] Allergies Active Allergy Reactions Criticality Noted Date Comments Codeine Other Low 02/03/2017 Altered mental status Medications * Be aware that medications may not be up to date on this document. Alwaysverify current medications with the patient. warfarin (COUMADIN) 5 MG tablet Take 5 mg by mouth DAILY. 11/18/2016 Active Folic Acid 0.8 MG Take by mouth. 08/19/2016 Active Cholecalciferol (VITAMIN D3) 1000 UNITS Take by mouth. 08/19/2016 Active glimepiride (AMARYL) 2 MG tablet 2 08/10/2016 Active cyanocobalamin (VITAMIN B-12) 1000 MCG tablet Take by mouth. 08/19/2016 Active NIFEdipine CR 24hr (ADALAT CC) 30 MG tablet Take 30 mg by mouth DAILY. 3 05/14/2016 Active latanoprost (XALATAN) 0.005 % ophthalmic solution 5 05/14/2016 Active omeprazole (PRILOSEC) 20 MG capsule 4 04/27/2016 Active aspirin (ASPIRIN) 81 MG chew tablet Take 81 mg by mouth DAILY. 100 tablet 3 05/10/2016 Active lisinopril (PRINIVIL; ZESTRIL) 2.5 MG tablet Take by mouth. 05/06/2016 Active atorvastatin (LIPITOR) 10 MG tablet Take by mouth. 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 Hyperglycemia 05/07/2016 Other acute postprocedural pain 05/07/2016 Essential (primary) hypertension 05/07/2016 Acute pulmonary insufficiency following nonthora cic surgery 05/07/2016 Immunizations Immunization Administration Dates Next Due TDAP (7yrs+) 05/08/2016 Social History Tobacco Use Types Packs/Day Years Used Date Smoking Tobacco: Never Smokeless Tobacco: Never Alcohol Use Standard Drinks/Week Comments No 0 (1 standard drink = 0.6 oz pur e alcohol) Comments Unknown Sex and Gender Information Value Date Recorded Sex Assigned at Not on file Legal Sex Female 5:15 PM SENIOR 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 Gender Identity Not on file Sexual Orientation Not on file Last Filed Vital Signs Vital Sign Reading Time Taken Comments Blood Pressure 135/72 02/03/2017 10:59 AM SENIOR PEOPLESOFT DEVELOPER Pulse 82 02/03/2017 10:59 AM SENIOR PEOPLESOFT DEVELOPER Temperature 36.1 C (97 F) 02/03/2017 10:59 AM SENIOR PEOPLESOFT DEVELOPER Respiratory Rate 16 01/18/2017 6:13 PM SENIOR PEOPLESOFT DEVELOPER Oxygen Saturation 99% 02/03/2017 10:59 AM SENIOR PEOPLESOFT DEVELOPER Inhaled Oxygen Concentration - - Weight 75.6 kg (166 lb 9.6 oz) 02/03/2017 10:59 AM SENIOR PEOPLESOFT DEVELOPER Height 154.9 cm (5' 1) 02/03/2017 10:59 AM SENIOR PEOPLESOFT DEVELOPER Body Mass Index 31.48 02/03/2017 10:59 AM SENIOR PEOPLESOFT DEVELOPER Plan of Treatment Health Maintenance Due Date Last Done Comments BONE DENSITY TESTING 1950 COLOGUARD (AGES 45-75) - COL ON CA SCREENING 1950 COLON MONITORING 1950 COLONOSCOPY - COLON CA SCREENING 1950 CT COLONOGRAPHY - COLON CA SCREENING 1950 Colorectal Cancer Screening 1950 FIT - COLON CA SCREENING 1950 FLEX SIG - COLON CA SCREENING 1950 MAMMOGRAM 1950 MEDICARE AWV 12 MONTHS 1950 HEPATITIS C SCREENING 11/01/1968 PNEUMOCOCCAL VACCINE 50+ (1 of 1 - PCV) 2000 ZOSTER VACCINE (1 of 2) 2000 Respiratory Syncytial Virus (RSV) Vaccine Pt: or over 60 yrs (1 - Risk 60-74 years 1-dose series) 2010 COVID-19 VACCINE (1 - 2023-2 5 season) 2023 DEPRESSION SCREENING 02/16/2024 INFLUENZA VACCINE (#1) 2024 DTAP/TDAP/TD VACCINES (2 - T d or Tdap) 05/08/2026 05/08/2016 HEPATITIS B VACCINE Aged Out No longe r eligible based on patient's age to complete this topic HIB VACCINE Aged Out No longer eligi ble based on patient's age to complete this topic HPV VACCINE Aged Out No longer eligi ble based on patient's age to complete this topic MENINGOCOCCAL (Group B) VACC INE SHARED DECISION-MAKING Aged Out No longer eligibl e based on patient's age to complete this topic MENINGOCOCCAL GROUPS A/C/Y/W VACCINE Aged Out No longer eligible b ased on patient's age to complete this topic Insurance MEDICARE [employer] MEDICARE [place] [employer] [place] [phone] MEDICARE [place] [employer] [place] [phone] MEDICARE [place] [employer] [place] [id number] MEDICARE [place] [employer] [place] [id number] Care Teams Grinder Operator Surface Tool Relationship Specialty Start Date End Date Teddy Walker MD [address] [place] [id number] PCP - General 12/29/12
[2024-09-18 14:00] LABS: Hematocrit 34.3 % (37.0-47.0); Hemoglobin 11.2 g/dL (12.0-15.0); Mean Corpuscular HGB Conc 32.7 g/dl (32-36); Mean Corpuscular Hemoglobin 31.7 pg (26-34); Mean Corpuscular Volume 97.2 fl (80-100); Platelet Count Result 305 k/mm3 (150-375); Red Blood Count 3.53 M/mm3 (4.2-5.4); White Blood Count 13.5 K/mm3 (4.5-10.0)
[2024-09-18 15:31] LABS: Alanine Aminotransferase 23 U/L (6-35); Albumin Level 4.2 g/dL (3.5-5.1); Alkaline Phosphatase 76 U/L (38-126); Amylase 63 U/L (30-110); Anion Gap 12 mmol/L (4-12); Aspartate Amino Transferase 35 U/L (14-36); Bilirubin,Total 0.7 mg/dL (0.2-1.3); Blood Urea Nitrogen 36 mg/dL (7-17); Calcium 10.2 mg/dL (8.4-10.2); Carbon Dioxide 24 mmol/L (22-30); Chloride 101 mmol/L (98-107); Cholesterol 166 mg/dL (0-200); Estimated Glomerular Filt Rate 27; Glucose 245 mg/dL (65-110); HDL Direct 35 mg/dL; Lipase 111 U/L (23-300); Potassium 4.7 mmol/L (3.4-5.0); Sodium 137 mmol/L (137-145); Total Protein 7.7 g/dL (6.3-8.2); Triglycerides 323 mg/dL (<150)
[2024-09-18 15:33] LABS: Albumin Level 4.1 g/dL (3.5-5.1); Anion Gap 13 mmol/L (4-12); Blood Urea Nitrogen 37 mg/dL (7-17); Calcium 10.1 mg/dL (8.4-10.2); Carbon Dioxide 24 mmol/L (22-30); Chloride 103 mmol/L (98-107); Estimated Glomerular Filt Rate 27; Glucose 247 mg/dL (65-110); Potassium 5.0 mmol/L (3.4-5.0); Sodium 140 mmol/L (137-145)
[2024-09-18 15:34] LABS: INR 1.6; Prothrombin Time 18.9 Seconds (11.1-14.7)
[2024-09-18 15:38] LABS: Total Protein Urine Random 32 mg/dL; Ur Ttl Prot Creatinine Ratio 0.16 mg/mg (0-0.20)
[2024-09-18 15:41] LABS: Parathyroid Intact 44.3 pg/mL (14.5-75.2)
[2024-09-18 16:08] LABS: Hemoglobin A1C 9.8 % (<5.7)
== END 2024-09-18 13:25 | disposition home or self-care (01) ==
LOC: ANHLAB 13:28
PROVIDERS: Nurse Practitioner Family; PCP Family Medicine Adolescent Medicine; Visit Provider Internal Medicine Nephrology
DX: E11.22 Type 2 diabetes mellitus with diabetic chronic kidney disease (principal); I12.9 Hypertensive chronic kidney disease with stage 1 through stage 4 chronic kidney disease, or unspecified chronic kidney disease; N18.32 Chronic kidney disease, stage 3b; N25.81 Secondary hyperparathyroidism of renal origin; E55.9 Vitamin D deficiency, unspecified; R10.9 Unspecified abdominal pain; I82.91 Chronic embolism and thrombosis of unspecified vein; I25.10 Atherosclerotic heart disease of native coronary artery without angina pectoris; E11.319 Type 2 diabetes mellitus with unspecified diabetic retinopathy without macular edema
CPT/HCPCS: 36415; 80053; 80061; 80069; 82150; 82306; 82570; 83036; 83690; 83970; 84156; 85027; 85610

== ENCOUNTER 2025-01-22 14:08 | Outpatient (CLI) | payer MEDICARE, SELFPAY ==
[2025-01-22 16:27] LABS: Albumin Level 4.3 g/dL (3.5-5.1); Anion Gap 11 mmol/L (4-12); Blood Urea Nitrogen 56 mg/dL (7-17); Calcium 9.8 mg/dL (8.4-10.2); Carbon Dioxide 21 mmol/L (22-30); Chloride 107 mmol/L (98-107); Estimated Glomerular Filt Rate 21; Glucose 144 mg/dL (65-110); Potassium 5.9 mmol/L (3.4-5.0); Sodium 139 mmol/L (137-145)
[2025-01-22 16:49] LABS: Total Protein Urine Random 18 mg/dL; Ur Ttl Prot Creatinine Ratio 0.21 mg/mg (0-0.20)
== END 2025-01-22 14:09 | disposition home or self-care (01) ==
PROVIDERS: PCP Family Medicine Adolescent Medicine; Visit Provider Internal Medicine Nephrology
DX: E11.22 Type 2 diabetes mellitus with diabetic chronic kidney disease (principal); I12.9 Hypertensive chronic kidney disease with stage 1 through stage 4 chronic kidney disease, or unspecified chronic kidney disease; N18.4 Chronic kidney disease, stage 4 (severe)
CPT/HCPCS: 36415; 80069; 82570; 84156